=== PATIENT | female | born 1980 | race Caucasian/White ===

== ENCOUNTER 2016-09-08 21:08 | Emergency (ER) | payer BC, OTHER ==
[~2016-09-08] VITALS: Ht 157.5 cm; Wt 68.0 kg
[~2016-09-08 21:08] MED LIST: CYCL10TA2 PO; DIPH25CA58 PO; FAMO-63 PO; HYDR-2758 PO; HYDR-971 PO; LEVO500T59 PO; METR500T PO; NITR100C62 PO; ONDA4TAB7 PO; SULF1TAB24 PO
[2016-09-08] MEDS ORDERED: HYDROmorphone 2 MG/ML VIAL IV ONE (22:00)
[2016-09-08] MEDS ORDERED: KETOROLAC 15 MG/ML VIAL. IV ONE (22:00)
[2016-09-08] MEDS ORDERED: IV NORMAL SALINE 1000ML BAG 1,000 ML IV ONE (22:00)
[2016-09-08] MEDS ORDERED: ONDANSETRON PF 4 MG/2 ML VIAL. IV ONE (22:00)
[2016-09-08 22:06] LABS: BASO # 0.1 x10^3/uL (0.0-0.2); BASO % 1 % (0-3); EOS % 1 % (0-3); HEMATOCRIT 34.5 % (36.0-47.0); HEMOGLOBIN 10.8 g/dL (12.0-15.5); LYMPH # 2.7 x10^3/uL (1.0-4.8); LYMPH % 34 % (24-48); MEAN CORPUSCULAR HEMOGLOBIN 25 pg (25-35); MEAN CORPUSCULAR HGB CONC 31 g/dL (31-37); MEAN CORPUSCULAR VOLUME 79 fL (79-100); MONO % 10 % (0-9); NEUT % 54 % (31-73); RED BLOOD COUNT 4.39 x10^6/uL (3.50-5.40); RED CELL DISTRIBUTION WIDTH 18.2 % (11.5-14.5); WHITE BLOOD COUNT 7.8 x10^3/uL (4.0-11.0)
[2016-09-08 22:14] LABS: CALCIUM 9.2 mg/dL (8.5-10.1); CREATININE 0.7 mg/dL (0.6-1.0); GFR 96.4; POTASSIUM 3.9 mmol/L (3.5-5.1)
[2016-09-08 22:15] LABS: PLATELET COUNT 991 x10^3/uL (140-400)
[2016-09-08 22:15] LABS: BACTERIA,URINE FEW /HPF (0-FEW); BILIRUBIN,URINE NEGATIVE (NEG); GLUCOSE,URINE NEGATIVE (NEG); NITRITE,URINE NEGATIVE (NEG); PROTEIN,URINE NEGATIVE (NEG-TRACE); RBC,URINE 0 /HPF (0-2); SQUAMOUS EPITHELIAL CELL,UR FEW /LPF; UROBILINOGEN,URINE 0.2 mg/dL (0.2 mg/dL)
[2016-09-08 22:37] LABS: ANISOCYTOSIS SLIGHT; PLT ESTIMATE INCREASED (ADEQUATE); POLYCHROMASIA SLIGHT
[2016-09-08 22:42] LABS: ALBUMIN 3.9 g/dL (3.4-5.0); ALBUMIN/GLOBULIN RATIO 0.8 (1.0-1.7); TOTAL BILIRUBIN 0.5 mg/dL (0.2-1.0); TOTAL PROTEIN 8.5 g/dL (6.4-8.2)
[2016-09-09] MEDS ORDERED: NAPR500T PO (00:55)
[2016-09-09] MEDS ORDERED: CEPH-264 PO (00:55)
--- NOTE | 2016-09-09 00:58 | PHYS DOC ---
Past Medical History Past Medical History: Other Additional Past Medical Histor: CHRONIC KIDNEY INFECTIONS, LUPUS, CHONIC PYELONEPHRITIS Past Surgical History: Appendectomy, Cholecystectomy, Splenectomy, Other Additional Past Surgical Histo: LEFT OVARY REMOVAL Alcohol Use: None Drug Use: None Adult General Chief Complaint Chief Complaint: FLANK PAIN HPI HPI Patient is a 35 year old female who presents here today complaining of left flank pain and suprapubic discomfort for approximately 1 day. Patient reports that she's had no fevers shakes chills. Patient is complaining of dysuria frequency and urgency. Patient is complaining of nausea vomiting. Patient has any diarrhea or hematuria. Patient's had a splenectomy in the past, appendectomy , cholecystectomy. Patient reports she had a recent miscarriage. When questioning patient further regarding her miscarriage patient reports that she was approximately 6 weeks on the August 27. She reports that she started having vaginal bleeding went to see her doctor and he did ultrasound on her. During that ultrasound they were not able to visualize the fetus. She did have some vaginal bleeding. Her doctor informed that she was likely having a miscarriage. Patient reports that she has not had serial beta hCGs to confirm miscarriage. Patient reports she has not had a repeat ultrasound to confirm she' s had a miscarriage and not a early IUP. 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 Patient reports that she's had UTI infection the past. Patient has had a history of lupus. Patient has any history of hypertension diabetes liver longer kidney pals. Surgeries in the past. Constitutional: Denies fever or chills [] Eyes: Denies change in visual acuity, redness, or eye pain [] HENT: Denies nasal congestion or sore throat [] All other review systems are negative except as documented in the history of present illness portion. Constitutional: Well developed, well nourished, no acute distress, non-toxic appearance. [] HENT: Normocephalic, atraumatic, bilateral external ears normal, oropharynx moist, no oral exudates, nose normal. [] Eyes: no discharge. [] Neck: Normal range of motion, no tenderness, supple, no stridor. [] Cardiovascular:Heart rate regular rhythm, Lungs & Thorax: Bilateral breath sounds clear to auscultation [] Abdomen: Bowel sounds normal, soft, tenderness to palpation to her left lower quadrant and left flank region. Normal active bowel sounds., no masses, no pulsatile masses. Abdomen soft nontender no rebound or guarding NABS. No Torres sign, no tenderness to McBurney's point. Patient not present with any signs or symptoms of be consistent with an acute surgical abdomen.[] Skin: Warm, dry, no erythema, no rash. [] Back: No tenderness, no CVA tenderness. [] Extremities: No tenderness, no cyanosis, no clubbing, ROM intact, no edema. [] Neurologic: Alert and oriented X 3, normal motor function, normal sensory function, no focal deficits noted. [] Psychologic: Affect normal, judgement normal, mood normal. [] Patient had an ultrasound performed to rule out ectopic . A bedside ultrasound performed by myself revealed a and uterus with an endometrial stripe. We're still pending the ultrasound report at this time. Patient is CT scan of her abdomen pelvis to rule out renal colic. We are still waiting on the CT report at this time. Patient's labs were significant for an elevated platelet count. Patient other history of ITP and is status post is clinically. Patient had 5-10 WBCs in her urine which could be consistent with urinary tract infection given the patient's symptoms she'll be treated for UTI. Patient's labs were all within normal limits. Patient's ER hospital course was significant for receiving a CT scan and ultrasound as well as basic labs were abdominal pain. Patient is also received Dilaudid, Toradol, Zofran and IV fluids for her abdominal discomfort. Assessment and plan: This is a 35-year-old female who presents here today complaining of abdominal pain and left flank pain. Patient appears to have a urinary tract infection this time. We are awaiting the CT scan ultrasound to rule out any other acute pathology however we will initiate Keflex to treat this patient's urinary tract infection. Current Medications Current Medications Current Medications Medications (Trade) Dose Ordered Sig/Rain Start Time Stop Time Status Last Admin Dose Admin Hydromorphone HCl (Dilaudid) 0.5 mg 1X ONCE 09/08/16 22:00 09/08/16 22:01 DC 09/08/16 22:08 0.5 MG Ketorolac Tromethamine (Toradol) 15 mg 1X ONCE 09/08/16 22:00 09/08/16 22:01 DC Ondansetron HCl (Zofran) 4 mg 1X ONCE 09/08/16 22:00 09/08/16 22:01 DC 09/08/16 22:08 4 MG Sodium Chloride 1,000 ml @ 1,000 mls/hr 1X ONCE 09/08/16 22:00 09/08/16 22:59 DC 09/08/16 22:09 1,000 MLS/HR Allergies Allergies Allergies Coded Allergies Type Severity Reaction Last Updated Verified tramadol Allergy Severe seizure 01/18/16 Yes morphine Allergy Intermediate Rash 02/06/16 Yes Current Patient Data Vital Signs Vital Signs Date Time Temp Pulse Resp B/P (MAP) Pulse Ox O2 Delivery O2 Flow Rate FiO2 09/08/16 23:11 96 18 141/82 (101) 100 Room Air 09/08/16 21:34 98.9 98.9 Lab Values Laboratory Tests Test 09/08/16 20:35 09/08/16 21:25 09/08/16 21:55 POC Urine HCG, Qualitative Hcg positive (Negative) Urine Collection Type Unknown Urine Color Yellow Urine Clarity Clear Urine pH 6.0 Urine Specific [place] 1.020 Urine Protein Negative mg/dL (NEG-TRACE) Urine Glucose (UA) Negative mg/dL (NEG) Urine Ketones (Stick) Negative mg/dL (NEG) Urine Blood Negative (NEG) Urine Nitrite Negative (NEG) Urine Bilirubin Negative (NEG) Urine Urobilinogen Dipstick 0.2 mg/dL (0.2 mg/dL) Urine Leukocyte Esterase Small (NEG) Urine RBC 0 /HPF (0-2) Urine WBC 5-10 /HPF (0-4) Urine Squamous Epithelial Cells Few /LPF Urine Bacteria Few /HPF (0-FEW) Urine Mucus Mod /LPF White Blood Count 7.8 x10^3/uL (4.0-11.0) Red Blood Count 4.39 x10^6/uL (3.50-5.40) Hemoglobin 10.8 g/dL (12.0-15.5) L Hematocrit 34.5 % (36.0-47.0) L Mean Corpuscular Volume 79 fL (79-100) Mean Corpuscular Hemoglobin 25 pg (25-35) Mean Corpuscular Hemoglobin Concent 31 g/dL (31-37) Red Cell Distribution Width 18.2 % (11.5-14.5) H Platelet Count 991 x10^3/uL (140-400) *H Neutrophils (%) (Auto) 54 % (31-73) Lymphocytes (%) (Auto) 34 % (24-48) Monocytes (%) (Auto) 10 % (0-9) H Eosinophils (%) (Auto) 1 % (0-3) Basophils (%) (Auto) 1 % (0-3) Neutrophils # (Auto) 4.2 x10^3uL (1.8-7.7) Lymphocytes # (Auto) 2.7 x10^3/uL (1.0-4.8) Monocytes # (Auto) 0.8 x10^3/uL (0.0-1.1) Eosinophils # (Auto) 0.0 x10^3/uL (0.0-0.7) Basophils # (Auto) 0.1 x10^3/uL (0.0-0.2) Platelet Estimate Increased (ADEQUATE) Polychromasia Slight Anisocytosis Slight Maternal Serum HCG Beta Subunit 97 mIU/mL (0-5) H Sodium Level 138 mmol/L (136-145) Potassium Level 3.9 mmol/L (3.5-5.1) Chloride Level 102 mmol/L (98-107) Carbon Dioxide Level 21 mmol/L (21-32) Anion Gap 15 (6-14) H Blood Urea Nitrogen 11 mg/dL (7-20) Creatinine 0.7 mg/dL (0.6-1.0) Estimated GFR (Cockcroft-Gault) 96.4 BUN/Creatinine Ratio 16 (6-20) Glucose Level 101 mg/dL (70-99) H Calcium Level 9.2 mg/dL (8.5-10.1) Total Bilirubin 0.5 mg/dL (0.2-1.0) Aspartate Amino Transferase (AST) 31 U/L (15-37) Alanine Aminotransferase (ALT) 30 U/L (14-59) Alkaline Phosphatase 113 U/L (46-116) Total Protein 8.5 g/dL (6.4-8.2) H Albumin 3.9 g/dL (3.4-5.0) Albumin/Globulin Ratio 0.8 (1.0-1.7) L Laboratory Tests 09/08/16 21:55 Laboratory Tests 09/08/16 21:55 EKG EKG [] Radiology/Procedures Radiology/Procedures [] Course & Med Decision Making Course & Med Decision Making Pertinent Labs and Imaging studies reviewed. (See chart for details) [] Dragon Disclaimer Dragon Disclaimer This electronic medical record was generated, in whole or in part, using a voice recognition dictation system. Departure Departure Impression: Primary Impression: Left flank pain Additional Impressions: UTI (urinary tract infection) Thrombocytosis Disposition: HOME, SELF-CARE Condition: GUARDED Referrals: NO PCP (PCP) Patient Instructions: Abdominal Pain (Nonspecific), Flank Pain, Urinary Tract Infection Scripts Naproxen (NAPROSYN) 500 Mg Tablet 500 MG PO BID, #20 TAB Prov: PHI GONZALEZ MD 09/09/16 Cephalexin (KEFLEX) 500 Mg Capsule 500 MG PO QID for 10 Days, CAP Prov: PHI GONZALEZ MD 09/09/16 Problem Qualifiers PHI GONZALEZ MD Sep 09, 2016 00:58
--- NOTE | 2016-09-09 01:04 | RAD ---
Obstetric ultrasound less than 14 weeks with transvaginal: Reason for examination: Pelvic pain and left flank pain. Told by OB on 08/26/2016 she had a miscarriage. Beta level 97. Transvaginally, the uterus measures 6.8 x 3.7 x 4.3 cm in greatest dimension. There is no evidence of intrauterine or ectopic gestation. Right ovary measures 3.0 x 2.3 x 2.0 cm in greatest dimensions. There is a small hypoechoic lesion in the right ovary which may represent a cyst or corpus luteal cyst. The left ovary is surgically absent. No free fluid is seen. Transvaginally, there is no evidence of intrauterine or ectopic gestation. There does appear to be a nabothian cyst in cervix. There is a 1.2 cm cystic lesion in the right ovary as well as a few smaller follicles. The left ovary is surgically absent. IMPRESSION: 1.2 cm cystic lesion in the right ovary. No evidence of intrauterine or ectopic gestation. Electronically signed by: Maryuri Jimenez MD (09/09/2016 1:01 AM) [facility]
--- NOTE | 2016-09-09 01:11 | RAD ---
CT abdomen and pelvis without contrast: Reason for examination: Severe left flank pain today. Helical images were obtained through the abdomen and pelvis with no intravenous or oral contrast administered. Reconstruction was performed in sagittal and coronal planes. Exposure: One or more of the following individualized dose reduction techniques were utilized for this examination: 1. Automated exposure control 2. Adjustment of the mA and/or kV according to patient size 3. Use of iterative reconstruction technique. The lung bases are clear. The heart size is normal with no pericardial effusion seen. No abnormality seen at the liver, pancrea or adrenal glands. The spleen appears to be surgically absent. Gallbladder is surgically absent. The abdominal aorta and inferior vena cava show no abnormalities. The kidneys show no renal masses, renal calculi, hydronephrosis or evidence of obstructive uropathy. The intestinal tract shows no abnormally dilated loops of bowel or bowel obstruction. There are no abnormally thickened bowel dowell. There is no diverticulosis or diverticulitis. The appendix is not identified and may be surgically absent. No abnormality seen at the bladder, uterus or right ovary. The left ovary surgically absent. No free fluid is seen in the pelvis. No acute bony abnormalities are evident. IMPRESSION: No acute abnormality evident in the abdomen or pelvis. Electronically signed by: Maryuri Jimenez MD (09/09/2016 1:08 AM) [facility]
[2016-09-09] MEDS ORDERED: HYDROmorphone 2 MG/ML VIAL IV ONE (01:30)
[2016-09-09 02:12] VITALS: BP 119/70
== END 2016-09-09 02:13 | disposition home or self-care (01) ==
LOC: ER 21:08
DX: O23.41 Unspecified infection of urinary tract in pregnancy, first trimester (principal); O26.891 Other specified pregnancy related conditions, first trimester; D47.3 Essential (hemorrhagic) thrombocythemia; M32.9 Systemic lupus erythematosus, unspecified; Z3A.01 Less than 8 weeks gestation of pregnancy; Z88.6 Allergy status to analgesic agent; Z90.49 Acquired absence of other specified parts of digestive tract
CPT/HCPCS: 36415; 74176; 76801; 76817; 80053; 81001; 81025; 84702; 85007; 85027; 86900; 86901; 87086; 96361; 96365; 96375; 96376; 99285; J0690; J1170; J1885; J2405; J7030; 87186

== ENCOUNTER 2016-09-17 19:11 | Emergency (ER) | payer OTHER ==
[~2016-09-17] VITALS: Ht 157.5 cm; Wt 65.8 kg
[~2016-09-17 19:11] MED LIST changes: +CEPH-264 PO; +NAPR500T PO
[2016-09-17 20:05] LABS: BILIRUBIN,URINE SMALL (NEG); GLUCOSE,URINE NEGATIVE (NEG); NITRITE,URINE NEGATIVE (NEG); PROTEIN,URINE 30 mg/dL (NEG-TRACE); UROBILINOGEN,URINE 0.2 mg/dL (0.2 mg/dL)
[2016-09-17 20:19] LABS: BACTERIA,URINE MODERATE /HPF (0-FEW); RBC,URINE 0 /HPF (0-2); SQUAMOUS EPITHELIAL CELL,UR MOD /LPF; WBC,URINE >40 /HPF (0-4); YEAST,URINE PRESENT /HPF
[2016-09-17] MEDS ORDERED: ONDANSETRON PF 4 MG/2 ML VIAL. IV ONE ×2 (20:30→22:00)
[2016-09-17] MEDS ORDERED: HYDROmorphone 2 MG/ML VIAL IV ONE ×2 (20:30→22:30)
[2016-09-17] MEDS ORDERED: IV NORMAL SALINE 1000ML BAG 1,000 ML IV ONE (20:30)
--- NOTE | 2016-09-17 20:44 | PHYS DOC ---
Past Medical History Past Medical History: Other Additional Past Medical Histor: CHRONIC KIDNEY INFECTIONS, LUPUS, CHONIC PYELONEPHRITIS Past Surgical History: Appendectomy, Cholecystectomy, Splenectomy, Other Additional Past Surgical Histo: LEFT OVARY REMOVAL Alcohol Use: None Drug Use: None Adult General Chief Complaint Chief Complaint: FLANK PAIN HPI HPI Patient is a 35 year old female with a history of chronic UTIs, chronic pyelonephritis, who presents today complaining of right flank pain for one week. Patient states she was seen in the ED a week ago for UTI. She states she was discharged with cephalexin. Patient states she finished it yesterday. She states she has continued to have flank pain which got worse yesterday with nausea vomiting this morning. Patient denies any fever. Denies any frequency but states she has had hematuria. Denies any history of kidney stones. Review of Systems Review of Systems Constitutional: Denies fever or chills [] Eyes: Denies change in visual acuity, redness, or eye pain [] HENT: Denies nasal congestion or sore throat [] Respiratory: Denies cough or shortness of breath [] Cardiovascular: No additional information not addressed in HPI [] GI: Denies abdominal pain, nausea, vomiting, bloody stools or diarrhea [] : hematuria, dysuria Musculoskeletal: Denies back pain or joint pain [] Integument: Denies rash or skin lesions [] Neurologic: Denies headache, focal weakness or sensory changes [] Endocrine: Denies polyuria or polydipsia [] Current Medications Current Medications Current Medications Medications (Trade) Dose Ordered Sig/Rain Start Time Stop Time Status Last Admin Dose Admin Ciprofloxacin Lactate 200 ml @ 200 mls/hr 1X ONCE 09/17/16 22:00 09/17/16 22:59 09/17/16 21:46 200 MLS/HR Hydromorphone HCl (Dilaudid) 1 mg 1X ONCE 09/17/16 20:30 09/17/16 20:31 DC 09/17/16 20:38 1 MG Ketorolac Tromethamine (Toradol) 30 mg 1X ONCE 09/17/16 22:00 09/17/16 22:01 09/17/16 21:45 30 MG Ondansetron HCl (Zofran) 4 mg 1X ONCE 09/17/16 22:00 09/17/16 22:01 09/17/16 21:45 4 MG Sodium Chloride 1,000 ml @ 1,000 mls/hr 1X ONCE 09/17/16 20:30 09/17/16 21:30 DC 09/17/16 20:39 1,000 MLS/HR Allergies Allergies Allergies Coded Allergies Type Severity Reaction Last Updated Verified tramadol Allergy Severe seizure 01/18/16 Yes morphine Allergy Intermediate Rash 02/06/16 Yes Physical Exam Physical Exam Constitutional: Well developed, well nourished, no acute distress, non-toxic appearance. [] HENT: Normocephalic, atraumatic, bilateral external ears normal, oropharynx moist, no oral exudates, nose normal. [] Eyes: PERRLA, EOMI, conjunctiva normal, no discharge. [] Neck: Normal range of motion, no tenderness, supple, no stridor. [] Cardiovascular:Heart rate regular rhythm, no murmur [] Lungs & Thorax: Bilateral breath sounds clear to auscultation [] Abdomen: Bowel sounds normal, soft, no tenderness, no masses, no pulsatile masses. [] Skin: Warm, dry, no erythema, no rash. [] Back: No tenderness, mild right CVA tenderness. [] Extremities: No tenderness, no cyanosis, no clubbing, ROM intact, no edema. [] Neurologic: Alert and oriented X 3, normal motor function, normal sensory function, no focal deficits noted. [] Psychologic: Affect normal, judgement normal, mood normal. [] Current Patient Data Vital Signs Vital Signs Date Time Temp Pulse Resp B/P (MAP) Pulse Ox O2 Delivery O2 Flow Rate FiO2 09/17/16 20:38 18 99 Room Air 09/17/16 19:58 98.8 127 188/105 (132) 98.8 Lab Values Laboratory Tests Test 09/17/16 19:10 09/17/16 19:49 09/17/16 20:40 09/17/16 20:45 POC Urine HCG, Qualitative Borderline hcg level Urine Collection Type Void Urine Color Yellow Urine Clarity Clear Urine pH 6.0 Urine Specific [place] >=1.030 Urine Protein 30 mg/dL (NEG-TRACE) Urine Glucose (UA) Negative mg/dL (NEG) Urine Ketones (Stick) >=80 mg/dL (NEG) Urine Blood Negative (NEG) Urine Nitrite Negative (NEG) Urine Bilirubin Small (NEG) Urine Urobilinogen Dipstick 0.2 mg/dL (0.2 mg/dL) Urine Leukocyte Esterase Moderate (NEG) Urine RBC 0 /HPF (0-2) Urine WBC >40 /HPF (0-4) Urine Squamous Epithelial Cells Mod /LPF Urine Bacteria Moderate /HPF (0-FEW) Urine Mucus Marked /LPF Urine Yeast Present /HPF White Blood Count 10.3 x10^3/uL (4.0-11.0) Red Blood Count 4.28 x10^6/uL (3.50-5.40) Hemoglobin 10.5 g/dL (12.0-15.5) L Hematocrit 34.1 % (36.0-47.0) L Mean Corpuscular Volume 80 fL (79-100) Mean Corpuscular Hemoglobin 25 pg (25-35) Mean Corpuscular Hemoglobin Concent 31 g/dL (31-37) Red Cell Distribution Width 18.6 % (11.5-14.5) H Platelet Count 683 x10^3/uL (140-400) H Neutrophils (%) (Auto) 72 % (31-73) Lymphocytes (%) (Auto) 20 % (24-48) L Monocytes (%) (Auto) 7 % (0-9) Eosinophils (%) (Auto) 0 % (0-3) Basophils (%) (Auto) 1 % (0-3) Neutrophils # (Auto) 7.4 x10^3uL (1.8-7.7) Lymphocytes # (Auto) 2.1 x10^3/uL (1.0-4.8) Monocytes # (Auto) 0.7 x10^3/uL (0.0-1.1) Eosinophils # (Auto) 0.0 x10^3/uL (0.0-0.7) Basophils # (Auto) 0.1 x10^3/uL (0.0-0.2) Sodium Level 140 mmol/L (136-145) Potassium Level 3.5 mmol/L (3.5-5.1) Chloride Level 103 mmol/L (98-107) Carbon Dioxide Level 21 mmol/L (21-32) Anion Gap 16 (6-14) H Blood Urea Nitrogen 11 mg/dL (7-20) Creatinine 0.7 mg/dL (0.6-1.0) Estimated GFR (Cockcroft-Gault) 96.4 BUN/Creatinine Ratio 16 (6-20) Glucose Level 91 mg/dL (70-99) Calcium Level 9.4 mg/dL (8.5-10.1) Total Bilirubin 0.4 mg/dL (0.2-1.0) Aspartate Amino Transferase (AST) 27 U/L (15-37) Alanine Aminotransferase (ALT) 72 U/L (14-59) H Alkaline Phosphatase 150 U/L (46-116) H Total Protein 8.7 g/dL (6.4-8.2) H Albumin 3.9 g/dL (3.4-5.0) Albumin/Globulin Ratio 0.8 (1.0-1.7) L Lipase 87 U/L (73-393) Ethyl Alcohol Level < 10 mg/dL (0-10) Maternal Serum HCG Beta Subunit 12 mIU/mL (0-5) H Laboratory Tests 09/17/16 20:40 Laboratory Tests 09/17/16 20:40 EKG EKG [] Radiology/Procedures Radiology/Procedures [] Course & Med Decision Making Course & Med Decision Making Pertinent Labs and Imaging studies reviewed. (See chart for details) This is a 35-year-old female patient who presents to the ED today with right flank pain. Patient has history of chronic pyelonephritis and UTIs. Patient was seen in the ED a week ago with the same complaint and was discharged with cephalexin. She finished the medicine yesterday with no relief of symptoms. Urine still shows infection. CBC with normal WBC. Platelets 683, patient has history of ITP with splenectomy. 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 I highly recommended she follows up with the government contracts manager. Last week Platelets were in the 900s. CMP would not acute findings. Patient was offered admission but she declined. Using her urine culture results from the last week. Patient is susceptible to Cipro. She was given first dose in the ED and discharged with Cipro, Zofran and hydrocodone as needed for pain. I recommended she follows up with [facility] urologist. She is instructed to return to the ED symptoms worsen. Dragon Disclaimer Dragon Disclaimer This electronic medical record was generated, in whole or in part, using a voice recognition dictation system. Departure Departure Impression: Primary Impression: Acute pyelonephritis Additional Impressions: Thrombocytosis Tachycardia Disposition: HOME, SELF-CARE Condition: STABLE Referrals: NO PCP (PCP) Follow-up with your own doctor or urologist at [facility] next week. [facility] does not have a urologist. Patient Instructions: Pyelonephritis, Adult Additional Instructions: You were seen for pyelonephritis. Take the prescribed antibiotics as ordered. Come back to the ED if symptoms worsen. Follow-up with your doctor next week. You can also follow up with on [facility] urology clinic. [facility] does not have a urologist. Scripts Ondansetron Hcl (ZOFRAN) 4 Mg Tablet 1 TAB PO Q6HRS, #20 TAB Prov: MILA BERRY APRN 09/17/16 Hydrocodone/Apap 5-325 (NORCO 5-325 TABLET) 1 Each Tablet 1-2 TAB PO Q4-6HRS, #25 TAB Prov: MILA BERRY APRN 09/17/16 Ciprofloxacin Hcl (CIPRO) 500 Mg Tablet 1 TAB PO BID, #14 TAB Prov: MILA BERRY APRN 09/17/16 Problem Qualifiers MILA BERRY APRN Sep 17, 2016 20:44
[2016-09-17 21:11] LABS: BASO # 0.1 x10^3/uL (0.0-0.2); BASO % 1 % (0-3); CALCIUM 9.4 mg/dL (8.5-10.1); CREATININE 0.7 mg/dL (0.6-1.0); EOS % 0 % (0-3); GFR 96.4; HEMATOCRIT 34.1 % (36.0-47.0); HEMOGLOBIN 10.5 g/dL (12.0-15.5); LYMPH # 2.1 x10^3/uL (1.0-4.8); LYMPH % 20 % (24-48); MEAN CORPUSCULAR HEMOGLOBIN 25 pg (25-35); MEAN CORPUSCULAR HGB CONC 31 g/dL (31-37); MEAN CORPUSCULAR VOLUME 80 fL (79-100); MONO % 7 % (0-9); NEUT % 72 % (31-73); PLATELET COUNT 683 x10^3/uL (140-400); POTASSIUM 3.5 mmol/L (3.5-5.1); RED BLOOD COUNT 4.28 x10^6/uL (3.50-5.40); RED CELL DISTRIBUTION WIDTH 18.6 % (11.5-14.5); WHITE BLOOD COUNT 10.3 x10^3/uL (4.0-11.0)
[2016-09-17 21:18] LABS: ALBUMIN 3.9 g/dL (3.4-5.0); ALBUMIN/GLOBULIN RATIO 0.8 (1.0-1.7); TOTAL BILIRUBIN 0.4 mg/dL (0.2-1.0); TOTAL PROTEIN 8.7 g/dL (6.4-8.2)
[2016-09-17] MEDS ORDERED: CIPR500T94 PO (21:47)
[2016-09-17] MEDS ORDERED: HYDR-971 PO (21:47)
[2016-09-17] MEDS ORDERED: ONDA4TAB7 PO (21:47)
[2016-09-17] MEDS ORDERED: KETOROLAC TROMETHAMINE 30 MG/ML INJ. IV ONE (22:00)
[2016-09-17] MEDS ORDERED: CIPROFLOXACIN 400MG PREMIX 200 ML IV ONE (22:00)
[2016-09-17 22:14] LABS: BARBITURATES NEG (NEG); BENZODIAZEPINES POS (NEG); CANNABINOIDS NEG (NEG); COCAINE NEG (NEG); METHADONE NEG (NEG); OPIATES NEG (NEG); PHENCYCLIDINE NEG (NEG)
[2016-09-17 23:00] VITALS: BP 135/82
== END 2016-09-17 23:15 | disposition home or self-care (01) ==
LOC: ER 19:11
DX: N10 Acute pyelonephritis (principal); D47.3 Essential (hemorrhagic) thrombocythemia; R00.0 Tachycardia, unspecified; M32.9 Systemic lupus erythematosus, unspecified; Z87.440 Personal history of urinary (tract) infections; Z90.49 Acquired absence of other specified parts of digestive tract; Z90.81 Acquired absence of spleen; Z90.721 Acquired absence of ovaries, unilateral; Z88.5 Allergy status to narcotic agent
CPT/HCPCS: 36415; 80053; 80307; 81001; 81025; 83690; 84702; 85027; 87086; 96361; 96365; 96375; 96376; 99285; G0480; J0744; J1170; J1885; J2405; J7030; G0479

== ENCOUNTER 2016-09-20 16:50 | Emergency (ER) | payer OTHER ==
[~2016-09-20] VITALS: Ht 157.5 cm; Wt 65.8 kg
[~2016-09-20 16:50] MED LIST changes: +CIPR500T94 PO
[2016-09-20] MEDS ORDERED: IV NORMAL SALINE 1000ML BAG 1,000 ML IV SCH (17:56)
[2016-09-20 18:08] LABS: BILIRUBIN,URINE NEGATIVE (NEG); GLUCOSE,URINE NEGATIVE (NEG); NITRITE,URINE NEGATIVE (NEG); PROTEIN,URINE NEGATIVE (NEG-TRACE); UROBILINOGEN,URINE 0.2 mg/dL (0.2 mg/dL)
[2016-09-20 18:15] LABS: BACTERIA,URINE MODERATE /HPF (0-FEW); RBC,URINE 0 /HPF (0-2); SQUAMOUS EPITHELIAL CELL,UR MOD /LPF
[2016-09-20 18:48] LABS: BILIRUBIN,URINE NEGATIVE (NEG); GLUCOSE,URINE NEGATIVE (NEG); NITRITE,URINE NEGATIVE (NEG); PH,URINE 6.5; PROTEIN,URINE NEGATIVE (NEG-TRACE); UROBILINOGEN,URINE 0.2 mg/dL (0.2 mg/dL)
[2016-09-20 19:01] LABS: BACTERIA,URINE 0 /HPF (0-FEW); RBC,URINE 0 /HPF (0-2); SQUAMOUS EPITHELIAL CELL,UR FEW /LPF
[2016-09-20 19:09] LABS: BASO # 0.1 x10^3/uL (0.0-0.2); BASO % 1 % (0-3); EOS % 1 % (0-3); HEMATOCRIT 34.8 % (36.0-47.0); HEMOGLOBIN 10.6 g/dL (12.0-15.5); LYMPH % 47 % (24-48); MEAN CORPUSCULAR HEMOGLOBIN 24 pg (25-35); MEAN CORPUSCULAR HGB CONC 31 g/dL (31-37); MEAN CORPUSCULAR VOLUME 80 fL (79-100); MONO % 5 % (0-9); NEUT % 47 % (31-73); PLATELET COUNT 668 x10^3/uL (140-400); RED BLOOD COUNT 4.35 x10^6/uL (3.50-5.40); RED CELL DISTRIBUTION WIDTH 18.5 % (11.5-14.5); WHITE BLOOD COUNT 8.5 x10^3/uL (4.0-11.0)
[2016-09-20 19:18] LABS: CREATININE 0.6 mg/dL (0.6-1.0); GFR 115.1; POTASSIUM 3.6 mmol/L (3.5-5.1)
[2016-09-20 19:24] LABS: ALBUMIN 3.9 g/dL (3.4-5.0); ALBUMIN/GLOBULIN RATIO 0.9 (1.0-1.7); TOTAL BILIRUBIN 0.3 mg/dL (0.2-1.0); TOTAL PROTEIN 8.4 g/dL (6.4-8.2)
[2016-09-20 20:14] LABS: % BASOS 1 % (0-3); % EOS 1 % (0-5); ANISOCYTOSIS SLIGHT; HOWELL-JOLLY BODIES PRESENT; HYPOCHROMIA SLIGHT; PLT ESTIMATE INCREASED (ADEQUATE); POIKILOCYTOSIS SLIGHT; TARGET CELLS PRESENT
[2016-09-20 20:18] LABS: SCHISTOCYTES FEW
[2016-09-20 20:19] LABS: ACANTHOCYTES OCC
[2016-09-20] MEDS ORDERED: PROM25TA10 PO (20:23)
--- NOTE | 2016-09-20 20:24 | PHYS DOC ---
Past Medical History Past Medical History: Other Additional Past Medical Histor: CHRONIC KIDNEY INFECTIONS, LUPUS, CHONIC PYELONEPHRITIS Past Surgical History: Appendectomy, Cholecystectomy, Splenectomy, Other Additional Past Surgical Histo: LEFT OVARY REMOVAL Alcohol Use: None Drug Use: None Adult General Chief Complaint Chief Complaint: FLANK PAIN HPI HPI Patient is a 35 year old female complaining of first right and then bilateral flank pain. The patient was seen a few days ago and diagnosed with urinary tract infection, she was started on antibiotics. The patient states she has been feeling worse. She has began to feel feverish. She's had vomiting. Her pain has worsened. She has been taking Her antibiotics as prescribed. Patient has had a couple of UTI/"kidney infections" in the recent past but does not have lifelong problems with that. She was recently seen in the ED and had a CT scan of the abdomen and pelvis that was negative for acute findings. Review of Systems Review of Systems Constitutional: Complains of fever and chills Eyes: Denies change in visual acuity, redness, or eye pain [] HENT: Denies nasal congestion or sore throat [] Respiratory: Denies cough or shortness of breath [] Cardiovascular: Denies chest pain GI: As in history of present illness : Denies dysuria or hematuria , the complaint is flank pain Musculoskeletal: Denies back pain or joint pain [] Integument: Denies rash or skin lesions [] Neurologic: Denies headache, focal weakness or sensory changes [] Current Medications Current Medications Current Medications Medications (Trade) Dose Ordered Sig/Rain Start Time Stop Time Status Last Admin Dose Admin Ketorolac Tromethamine (Toradol) 30 mg 1X ONCE 09/20/16 20:30 09/20/16 20:31 DC 09/20/16 20:14 30 MG Ondansetron HCl (Zofran) 4 mg 1X ONCE 09/20/16 20:30 09/20/16 20:31 DC 09/20/16 20:14 4 MG Sodium Chloride 1,000 ml @ 1,000 mls/hr Q1H 09/20/16 17:56 09/20/16 18:55 DC 09/20/16 18:26 1,000 MLS/HR Allergies Allergies Allergies Coded Allergies Type Severity Reaction Last Updated Verified tramadol Allergy Severe seizure 01/18/16 Yes morphine Allergy Intermediate Rash 02/06/16 Yes Physical Exam Physical Exam Constitutional: Well developed, well nourished, appears to not feel well, alert , mentating normally, warm and dry HENT: Normocephalic, atraumatic, bilateral external ears normal, nose normal. [ ] Eyes: conjunctiva normal, no discharge. [] Neck: Normal range of motion, no stridor. [] Cardiovascular:Heart rate regular rhythm, no murmur [] Lungs & Thorax: Bilateral breath sounds clear to auscultation [] Abdomen: Bowel sounds normal, soft, no tenderness, no masses, no pulsatile masses. [] Skin: Warm, dry, no erythema, no rash. [] Back: Tenderness to light touch over both CVA areas Extremities: No tenderness, no cyanosis, no clubbing, ROM intact, no edema. [] Neurologic: Alert and oriented X 3, normal motor function, normal sensory function, no focal deficits noted. [] Current Patient Data Vital Signs Vital Signs Date Time Temp Pulse Resp B/P (MAP) Pulse Ox O2 Delivery O2 Flow Rate FiO2 09/20/16 20:43 102 20 136/92 (107) 98 Room Air 09/20/16 17:26 98.6 98.6 Lab Values Laboratory Tests Test 09/20/16 16:29 09/20/16 17:19 09/20/16 18:31 09/20/16 19:01 POC Urine HCG, Qualitative Hcg negative (Negative) Urine Collection Type Unknown U cath Urine Color Yellow Yellow Urine Clarity Clear Clear Urine pH 7.0 6.5 Urine Specific [place] <=1.005 <=1.005 Urine Protein Negative mg/dL (NEG-TRACE) Negative mg/dL (NEG-TRACE) Urine Glucose (UA) Negative mg/dL (NEG) Negative mg/dL (NEG) Urine Ketones (Stick) Negative mg/dL (NEG) Negative mg/dL (NEG) Urine Blood Negative (NEG) Negative (NEG) Urine Nitrite Negative (NEG) Negative (NEG) Urine Bilirubin Negative (NEG) Negative (NEG) Urine Urobilinogen Dipstick 0.2 mg/dL (0.2 mg/dL) 0.2 mg/dL (0.2 mg/dL) Urine Leukocyte Esterase Large (NEG) Trace (NEG) Urine RBC 0 /HPF (0-2) 0 /HPF (0-2) Urine WBC 11-20 /HPF (0-4) 1-4 /HPF (0-4) Urine Squamous Epithelial Cells Mod /LPF Few /LPF Urine Bacteria Moderate /HPF (0-FEW) 0 /HPF (0-FEW) White Blood Count 8.5 x10^3/uL (4.0-11.0) Red Blood Count 4.35 x10^6/uL (3.50-5.40) Hemoglobin 10.6 g/dL (12.0-15.5) L Hematocrit 34.8 % (36.0-47.0) L Mean Corpuscular Volume 80 fL (79-100) Mean Corpuscular Hemoglobin 24 pg (25-35) L Mean Corpuscular Hemoglobin Concent 31 g/dL (31-37) Red Cell Distribution Width 18.5 % (11.5-14.5) H Platelet Count 668 x10^3/uL (140-400) H Neutrophils (%) (Auto) 47 % (31-73) Lymphocytes (%) (Auto) 47 % (24-48) Monocytes (%) (Auto) 5 % (0-9) Eosinophils (%) (Auto) 1 % (0-3) Basophils (%) (Auto) 1 % (0-3) Neutrophils # (Auto) 4.0 x10^3uL (1.8-7.7) Lymphocytes # (Auto) 4.0 x10^3/uL (1.0-4.8) Monocytes # (Auto) 0.4 x10^3/uL (0.0-1.1) Eosinophils # (Auto) 0.1 x10^3/uL (0.0-0.7) Basophils # (Auto) 0.1 x10^3/uL (0.0-0.2) Segmented Neutrophils % 67 % (35-66) H Band Neutrophils % 1 % (0-9) Lymphocytes % 27 % (24-48) Atypical Lymphocytes % (Manual) 1 % (0-0) H Monocytes % 2 % (0-10) Eosinophils % 1 % (0-5) Basophils % 1 % (0-3) Hypersegmented Neutrophils Present Platelet Estimate Increased (ADEQUATE) Hypochromasia Slight Poikilocytosis Slight Anisocytosis Slight Target Cells Present [place] Bodies Present Acanthocytes (Spur Cells) Occ Schistocytes Few Sodium Level 141 mmol/L (136-145) Potassium Level 3.6 mmol/L (3.5-5.1) Chloride Level 105 mmol/L (98-107) Carbon Dioxide Level 21 mmol/L (21-32) Anion Gap 15 (6-14) H Blood Urea Nitrogen 8 mg/dL (7-20) Creatinine 0.6 mg/dL (0.6-1.0) Estimated GFR (Cockcroft-Gault) 115.1 BUN/Creatinine Ratio 13 (6-20) Glucose Level 92 mg/dL (70-99) Calcium Level 9.0 mg/dL (8.5-10.1) Total Bilirubin 0.3 mg/dL (0.2-1.0) Aspartate Amino Transferase (AST) 15 U/L (15-37) Alanine Aminotransferase (ALT) 35 U/L (14-59) Alkaline Phosphatase 119 U/L (46-116) H Total Protein 8.4 g/dL (6.4-8.2) H Albumin 3.9 g/dL (3.4-5.0) Albumin/Globulin Ratio 0.9 (1.0-1.7) L Laboratory Tests 09/20/16 19:01 Laboratory Tests 09/20/16 19:01 Microbiology 09/20/16 Urine Culture - Final, Complete 09/20/16 Urine Culture Result 1 (KIM) - Final, Complete 09/20/16 Antimicrobic Susceptibility - Final, Complete EKG EKG [] Radiology/Procedures Radiology/Procedures [] Course & Med Decision Making Course & Med Decision Making Pertinent Labs and Imaging studies reviewed. (See chart for details) 35-year-old female presents with bilateral flank pain and what she is concerned may be a worsening UTI/pyelonephritis. She has been taking her antibiotics as prescribed. She had the diagnosis of a UTI made on a visit 09/08 and then again . Evaluation in the ED shows the patient to be afebrile without leukocytosis or other concerning lab abnormalities. Although she looks like she doesn't feel well, she did not have any vomiting or dry heaves in the emergency department. She was given a liter of IV fluids. I reviewed the patient's records. Her previous urinalyses on 09/08 and had moderate epithelial cells, and urine culture in both cases was under the threshold of greater than 100,000 colony-forming units. In both cases, the smaller number of bacteria were treated appropriately by the antibiotic prescribed, the first visit Keflex and the second visit Cipro. I discussed with the patient that I'm concerned that possibly her flank pain may not in fact be UTI/pyelonephritis. It is not really adding up for me that the patient does not have a fever or white count, has never had a threshold of greater than 100,000 colony-forming units of bacteria, and both cases has been treated with appropriate antibiotics that yet continues to have symptoms that are not improving and in fact worsening. Based on the above, I encouraged the patient to follow up with urology. She does have an appointment coming up. Patient has been hydrated and is stable for discharge to home. See instructions for plan. [] Dragon Disclaimer Dragon Disclaimer This electronic medical record was generated, in whole or in part, using a voice recognition dictation system. Departure Departure Impression: Primary Impression: Right flank pain Disposition: HOME, SELF-CARE Condition: STABLE Referrals: NO PCP (PCP) Patient Instructions: Flank Pain, [id number] Additional Instructions: As we discussed, when we obtained a urine sample by using a catheter, there is no infection. I'm concerned that your previous treatment for urinary tract infection/kidney infection may have been based on samples that were not perfectly clean urine out of your bladder, as we discussed, when we see skin cells and a urine sample, we consider it "contaminated" and the white blood cells and bacteria could have come from the outside of your skin and not inside of your bladder. As we discussed, continue to drink plenty of fluids and stay well-hydrated. As we discussed, I recommend avoiding opiate pain relievers in this type of the situation, where we do not know what is causing the pain and how long this pain might last. For pain, try heat or cold, try Tylenol and you may sparingly take ibuprofen with plenty of fluids or something to eat. For nausea, I have prescribed promethazine which may work better than Zofran for you. Call tomorrow to see if you can get your urology clinic appointment moved up sooner. Scripts Promethazine Hcl (PROMETHAZINE HCL) 25 Mg Tablet 25 MG PO Q6H Y for NAUSEA/VOMITING for 7 Days, #14 TAB Prov: SHAQUILLE READ MD 09/20/16 SHAQUILLE READ MD Sep 20, 2016:24
[2016-09-20] MEDS ORDERED: KETOROLAC TROMETHAMINE 30 MG/ML INJ. IV ONE (20:30)
[2016-09-20] MEDS ORDERED: ONDANSETRON PF 4 MG/2 ML VIAL. IV ONE (20:30)
[2016-09-20 20:43] VITALS: BP 136/92
== END 2016-09-20 20:43 | disposition home or self-care (01) ==
LOC: ER 16:50
DX: R10.9 Unspecified abdominal pain (principal); R11.10 Vomiting, unspecified; M32.9 Systemic lupus erythematosus, unspecified; Z90.49 Acquired absence of other specified parts of digestive tract; Z90.81 Acquired absence of spleen; Z88.5 Allergy status to narcotic agent; Z88.6 Allergy status to analgesic agent
CPT/HCPCS: 36415; 80053; 81001; 81025; 85007; 85027; 87086; 96361; 96374; 96375; 99284; J1885; J2405; J7030

== ENCOUNTER 2016-10-22 18:10 | Emergency (ER) | payer OTHER ==
[~2016-10-22] VITALS: Ht 157.5 cm; Wt 68.0 kg
[~2016-10-22 18:10] MED LIST changes: +CYAN10005 PO; +FERR325T72 PO; +METO25TA4 PO; +PROM25TA10 PO
--- NOTE | 2016-10-22 19:00 | PHYS DOC ---
Past Medical History Past Medical History: Seizure, Other Additional Past Medical Histor: CHRONIC KIDNEY INFECTIONS, LUPUS, CHONIC PYELONEPHRITIS Past Surgical History: Appendectomy, Cholecystectomy, Splenectomy, Other Additional Past Surgical Histo: LEFT OVARY REMOVAL Alcohol Use: None Drug Use: None Adult General Chief Complaint Chief Complaint: OTHER COMPLAINTS HPI HPI Patient is a 35 year old F who presents with coughing up blood and blood in her urine. Patient states approximately 3 weeks ago she is seizure with a skull fracture was admitted to [facility]. Patient states she has chronic kidney disease with chronic UTIs. Patient was seen in the emergency room at [facility] a week ago and was diagnosed with UTI and placed on Cipro. Patient states that her symptoms are gone worse over the last 3 days with burning with urination and blood in her urine. Patient has seen a doctor every day this week however did not address her UTI symptoms. Patient denies any fevers. Patient describes some right flank pain. Patient is also concerned about coughing up the blood. Patient on no blood thinners. Patient denies any shortness of breath or chest pain. Patient has no other complaints. Review of Systems Review of Systems GEN: Denies fevers, chills, sweats HEENT: Denies blurred vision, sore throat CV: Denies chest pain RESP: Coughing up blood GI: Suprapubic pain along with dysuria NEURO: Denies confusion, dizziness MSK: Denies weakness, joint pain/swelling Current Medications Current Medications Current Medications Medications (Trade) Dose Ordered Sig/Rain Start Time Stop Time Status Last Admin Dose Admin Ceftriaxone Sodium 50 ml @ 100 mls/hr 1X ONCE 10/22/16 23:30 10/22/16 23:59 DC 10/22/16 23:32 100 MLS/HR Fentanyl Citrate (Fentanyl 2ml Vial) 50 mcg 1X ONCE 10/22/16 21:45 10/22/16 21:46 DC 10/22/16 21:44 50 MCG Info (Do NOT chart on this entry -- for MONITORING) 1 each PRN DAILY PRN 10/22/16 22:00 10/23/16 00:12 DC Iohexol (Omnipaque 300 Mg/ml) 75 ml 1X ONCE 10/22/16 22:00 10/22/16 22:01 DC 10/22/16 22:00 75 ML Allergies Allergies Allergies Coded Allergies Type Severity Reaction Last Updated Verified tramadol Allergy Severe seizure 01/18/16 Yes morphine Allergy Intermediate Rash 02/06/16 Yes Physical Exam Physical Exam GEN.: No apparent distress. Alert and oriented. HEENT: Head is normocephalic, atraumatic NECK: Supple. LUNGS: CTAB. HEART: RRR, S1, S2 present. Peripheral pulses intact ABDOMEN: Soft, right CVA tenderness, suprapubic tenderness, no rebound tenderness, no abdominal distention. Positive bowel sounds. EXTREMITIES: Without any cyanosis. NEUROLOGIC: Normal speech, normal tone PSYCHIATRIC: Normal affect, normal mood. SKIN: No ulcerations Current Patient Data Vital Signs Vital Signs Date Time Temp Pulse Resp B/P (MAP) Pulse Ox O2 Delivery O2 Flow Rate FiO2 10/23/16 00:09 98.1 98 16 117/75 (89) 99 Room Air 98.1 Lab Values Laboratory Tests Test 10/22/16 18:25 10/22/16 18:27 10/22/16 19:30 Urine Collection Type Unknown Urine Color Yellow Urine Clarity Cloudy Urine pH 7.5 Urine Specific [place] 1.015 Urine Protein Negative mg/dL (NEG-TRACE) Urine Glucose (UA) Negative mg/dL (NEG) Urine Ketones (Stick) Negative mg/dL (NEG) Urine Blood Negative (NEG) Urine Nitrite Negative (NEG) Urine Bilirubin Negative (NEG) Urine Urobilinogen Dipstick 0.2 mg/dL (0.2 mg/dL) Urine Leukocyte Esterase Small (NEG) Urine RBC 0 /HPF (0-2) Urine WBC 20-40 /HPF (0-4) Urine Squamous Epithelial Cells Many /LPF Urine Bacteria Moderate /HPF (0-FEW) Urine Mucus Mod /LPF POC Urine HCG, Qualitative Hcg negative (Negative) White Blood Count 9.8 x10^3/uL (4.0-11.0) Red Blood Count 3.47 x10^6/uL (3.50-5.40) L Hemoglobin 9.4 g/dL (12.0-15.5) L Hematocrit 29.7 % (36.0-47.0) L Mean Corpuscular Volume 86 fL (79-100) Mean Corpuscular Hemoglobin 27 pg (25-35) Mean Corpuscular Hemoglobin Concent 32 g/dL (31-37) Red Cell Distribution Width 20.2 % (11.5-14.5) H Platelet Count 946 x10^3/uL (140-400) *H Neutrophils (%) (Auto) 50 % (31-73) Lymphocytes (%) (Auto) 40 % (24-48) Monocytes (%) (Auto) 6 % (0-9) Eosinophils (%) (Auto) 2 % (0-3) Basophils (%) (Auto) 1 % (0-3) Neutrophils # (Auto) 4.9 x10^3uL (1.8-7.7) Lymphocytes # (Auto) 3.9 x10^3/uL (1.0-4.8) Monocytes # (Auto) 0.6 x10^3/uL (0.0-1.1) Eosinophils # (Auto) 0.2 x10^3/uL (0.0-0.7) Basophils # (Auto) 0.1 x10^3/uL (0.0-0.2) Platelet Estimate Increased (ADEQUATE) Poikilocytosis Slight Anisocytosis Slight Target Cells Few [place] Bodies Present Acanthocytes (Spur Cells) Occ Schistocytes Few Sodium Level 141 mmol/L (136-145) Potassium Level 4.0 mmol/L (3.5-5.1) Chloride Level 106 mmol/L (98-107) Carbon Dioxide Level 23 mmol/L (21-32) Anion Gap 12 (6-14) Blood Urea Nitrogen 11 mg/dL (7-20) Creatinine 0.9 mg/dL (0.6-1.0) Estimated GFR (Cockcroft-Gault) 72.1 BUN/Creatinine Ratio 12 (6-20) Glucose Level 97 mg/dL (70-99) Calcium Level 9.3 mg/dL (8.5-10.1) Total Bilirubin 0.3 mg/dL (0.2-1.0) Aspartate Amino Transferase (AST) 18 U/L (15-37) Alanine Aminotransferase (ALT) 29 U/L (14-59) Alkaline Phosphatase 126 U/L (46-116) H Total Protein 7.7 g/dL (6.4-8.2) Albumin 3.9 g/dL (3.4-5.0) Albumin/Globulin Ratio 1.0 (1.0-1.7) Laboratory Tests 10/22/16 19:30 Laboratory Tests 10/22/16 19:30 EKG EKG [] Radiology/Procedures Radiology/Procedures CT scan abdomen pelvis: 1. No acute intra-abdominal or pelvic process is detected. 2. A 2.2 cm right ovarian cyst probably pathological. Chest x-ray NAD Course & Med Decision Making Course & Med Decision Making Pertinent Labs and Imaging studies reviewed. (See chart for details) ED course: Patient was seen and examined emergency room CBC, CMP, UA, and urine., CT scan and pelvis, chest x-ray were ordered 2313: Patient was reevaluated and updated on lab results and UA results and CT findings. Recommended patient be admitted to the hospital for elevated platelets and a persistent UTI. Patient states that she has a appointment with a maintenance planning clerk next week to follow-up for the elevated platelets that were found on her previous hospital admissions. Patient states she would like to change her antibiotics and not be admitted to the hospital. How long discussion with the patient about signs and symptoms of sepsis explained to her that she failed outpatient treatment with Cipro and would like to admit her for IV antibiotic therapy and further workup for her elevated platelets. Patient refused admission under seen all risks including and disability. The alternative we have chosen is to change her antibiotics and she will follow-up with PCP next week. Patient is stable for discharge. [] Dragon Disclaimer Dragon Disclaimer This electronic medical record was generated, in whole or in part, using a voice recognition dictation system. Departure Departure Impression: Primary Impression: UTI (urinary tract infection) Additional Impressions: Elevated platelet count Abdominal pain Disposition: HOME, SELF-CARE Condition: STABLE Referrals: UNKNOWN PCP NAME (PCP) Patient Instructions: Urinary Tract Infection, [id number] Additional Instructions: Please follow-up with your family physician in the next one to 2 days and return if symptoms increase Scripts Cephalexin (KEFLEX) 500 Mg Capsule 1 CAP PO TID, #21 CAP Prov: LIZ GALEANO DO 10/22/16 Problem Qualifiers LIZ GALEANO DO Oct 22, 2016 19:00
[2016-10-22 19:30] LABS: BILIRUBIN,URINE NEGATIVE (NEG); GLUCOSE,URINE NEGATIVE (NEG); NITRITE,URINE NEGATIVE (NEG); PH,URINE 7.5; PROTEIN,URINE NEGATIVE (NEG-TRACE); UROBILINOGEN,URINE 0.2 mg/dL (0.2 mg/dL)
[2016-10-22 19:47] LABS: BASO # 0.1 x10^3/uL (0.0-0.2); BASO % 1 % (0-3); EOS % 2 % (0-3); HEMATOCRIT 29.7 % (36.0-47.0); HEMOGLOBIN 9.4 g/dL (12.0-15.5); LYMPH # 3.9 x10^3/uL (1.0-4.8); LYMPH % 40 % (24-48); MEAN CORPUSCULAR HEMOGLOBIN 27 pg (25-35); MEAN CORPUSCULAR HGB CONC 32 g/dL (31-37); MEAN CORPUSCULAR VOLUME 86 fL (79-100); MONO % 6 % (0-9); NEUT % 50 % (31-73); RED BLOOD COUNT 3.47 x10^6/uL (3.50-5.40); RED CELL DISTRIBUTION WIDTH 20.2 % (11.5-14.5); WHITE BLOOD COUNT 9.8 x10^3/uL (4.0-11.0)
[2016-10-22 19:48] LABS: BACTERIA,URINE MODERATE /HPF (0-FEW); RBC,URINE 0 /HPF (0-2); SQUAMOUS EPITHELIAL CELL,UR MANY /LPF; WBC,URINE 20-40 /HPF (0-4)
[2016-10-22 19:54] LABS: CALCIUM 9.3 mg/dL (8.5-10.1); CREATININE 0.9 mg/dL (0.6-1.0); GFR 72.1
[2016-10-22 19:55] LABS: PLATELET COUNT 946 x10^3/uL (140-400)
[2016-10-22 20:01] LABS: ALBUMIN 3.9 g/dL (3.4-5.0); TOTAL BILIRUBIN 0.3 mg/dL (0.2-1.0); TOTAL PROTEIN 7.7 g/dL (6.4-8.2)
[2016-10-22 20:18] LABS: PLT ESTIMATE INCREASED (ADEQUATE)
[2016-10-22 20:19] LABS: ANISOCYTOSIS SLIGHT; POIKILOCYTOSIS SLIGHT; TARGET CELLS FEW
[2016-10-22 20:20] LABS: SCHISTOCYTES FEW
[2016-10-22 20:23] LABS: ACANTHOCYTES OCC; HOWELL-JOLLY BODIES PRESENT
[2016-10-22] MEDS ORDERED: fentaNYL PF VIAL 100 MCG/2 ML VIAL IV ONE (21:45)
[2016-10-22] MEDS ORDERED: IOHEXOL 300 MG/ML 75 ML VIAL IV ONE (22:00)
[2016-10-22] MEDS ORDERED: CONTRAST GIVEN MC PRN (22:00)
--- NOTE | 2016-10-22 22:21 | RAD ---
Exam performed: CT scan of the abdomen and pelvis with contrast Clinical Indication:History of lupus, patient is coughing up blood with blood in the urine today. Seizure 3 weeks ago with closed skull fracture Date of Service: 09/22/2016 comparison: CT abdomen and pelvis from September 08, 2016 Technique: Contiguous helical acquisitions are obtained from the lung bases to the pelvis during intravenous administration of [75 mL of Omnipaque 300]. Sagittal and coronal reformatted images were obtained and reviewed. CT abdomen findings: The lung bases appear essentially clear. Visualized heart is normal The liver and pancreas appears unremarkable. Cholecystectomy. 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 The small bowel loops appear nondilated and unremarkable. Aorta is normal in caliber. There is no retroperitoneal lymphadenopathy or mass lesions. No bowel related inflammatory stranding is noted. No obvious stranding is seen in the pericecal region. CT pelvis findings: The pelvic bowel loops are nondilated and unremarkable. The urinary bladder is well distended and normal . Uterus is anteverted. 2.2 cm cyst in the right adnexa likely physiological.Interrogation of bone windows demonstrates no obvious bony abnormality. Sagittal and coronal reformatted images were obtained and reviewed which demonstrate no additional findings. Impression abdomen and pelvis : 1. No acute intra-abdominal or pelvic process is detected. 2. A 2.2 cm right ovarian cyst probably pathological. PQRS Compliance Statement: One or more of the following individualized dose reduction techniques were utilized for this examination: 1. Automated exposure control 2. Adjustment of the mA and/or kV according to patient size 3. Use of iterative reconstruction technique Electronically signed by: Radha Lujan MD (10/22/2016 10:18 PM) [id number]
[2016-10-22] MEDS ORDERED: CEPH-264 PO (23:17)
[2016-10-23 00:09] VITALS: BP 117/75
--- NOTE | 2016-10-23 08:50 | RAD ---
Chest, 2 views, 10/22/2016: History: Coughing up blood Comparison is made to a study from 09/29/2016. The heart size and pulmonary vascularity are normal. An unchanged density projected over the anterior end of the right first rib is probably due to cartilaginous calcification at the rib end. No pulmonary infiltrate is seen. There is no evidence of pleural fluid. IMPRESSION: No acute cardiopulmonary abnormality is detected.
--- NOTE | 2016-10-25 10:02 | VNOTE ---
CALL BACK NOTE CALL BACK Microbiology 10/22/16 Urine Culture - Final, Complete 10/22/16 Urine Culture Result 1 (KIM) - Final, Complete 10/22/16 Antimicrobic Susceptibility - Final, Complete Attempted to contact patient [phone] in regards to patient's urinalysis was positive for Escherichia coli. Patient was placed on Keflex according to the culture and sensitivity report Keflex as an intermediate coverage. Patient should be changed to Macrobid 100 mg twice a day for the next 7 days. Message was left for patient to call the emergency department. I did not see or treat this patient. I am signing this note administratively. KEISHA IGLESIAS APRN Oct 25, 2016 10:02 SHAVON NOGUERA MD Oct 26, 2016 07:51
== END 2016-10-23 00:12 | disposition home or self-care (01) ==
LOC: ER 18:10
DX: N39.0 Urinary tract infection, site not specified (principal); D69.1 Qualitative platelet defects; R10.30 Lower abdominal pain, unspecified; M32.9 Systemic lupus erythematosus, unspecified; N18.9 Chronic kidney disease, unspecified; Z90.49 Acquired absence of other specified parts of digestive tract; Z90.81 Acquired absence of spleen; Z88.5 Allergy status to narcotic agent; Z88.6 Allergy status to analgesic agent
CPT/HCPCS: 36415; 71020; 74177; 80053; 81001; 81025; 85025; 87086; 96365; 96375; 99285; J0690; J3010; Q9967

== ENCOUNTER 2016-10-28 10:17 | Emergency (ER) | payer OTHER ==
[2016-10-28] MEDS ORDERED: CIPROFLOXACIN 400MG PREMIX 200 ML IV ONE (11:15)
[2016-10-28] MEDS ORDERED: IV NORMAL SALINE 1000ML BAG 1,000 ML IV ONE (11:15)
[2016-10-28 11:22] LABS: BILIRUBIN,URINE NEGATIVE (NEG); GLUCOSE,URINE NEGATIVE (NEG); NITRITE,URINE NEGATIVE (NEG); PROTEIN,URINE NEGATIVE (NEG-TRACE); UROBILINOGEN,URINE 0.2 mg/dL (0.2 mg/dL)
[2016-10-28 11:30] LABS: SQUAMOUS EPITHELIAL CELL,UR MOD /LPF
[2016-10-28 11:31] LABS: BACTERIA,URINE FEW /HPF (0-FEW); RBC,URINE 0 /HPF (0-2)
[2016-10-28 11:50] VITALS: BP 105/64
[2016-10-28 12:15] LABS: BASO % 1 % (0-3); EOS % 0 % (0-3); HEMATOCRIT 31.3 % (36.0-47.0); HEMOGLOBIN 9.8 g/dL (12.0-15.5); LYMPH # 2.1 x10^3/uL (1.0-4.8); LYMPH % 39 % (24-48); MEAN CORPUSCULAR HEMOGLOBIN 27 pg (25-35); MEAN CORPUSCULAR HGB CONC 31 g/dL (31-37); MEAN CORPUSCULAR VOLUME 86 fL (79-100); MONO % 7 % (0-9); NEUT % 52 % (31-73); RED BLOOD COUNT 3.65 x10^6/uL (3.50-5.40); RED CELL DISTRIBUTION WIDTH 19.2 % (11.5-14.5); WHITE BLOOD COUNT 5.3 x10^3/uL (4.0-11.0)
[2016-10-28] MEDS ORDERED: ONDANSETRON PF 4 MG/2 ML VIAL. IV ONE (12:15)
[2016-10-28] MEDS ORDERED: fentaNYL PF VIAL 100 MCG/2 ML VIAL IV ONE (12:15)
[2016-10-28 12:16] LABS: PLATELET COUNT 878 x10^3/uL (140-400)
[2016-10-28 12:23] LABS: CALCIUM 8.8 mg/dL (8.5-10.1); GFR 63.9; POTASSIUM 4.4 mmol/L (3.5-5.1)
[2016-10-28 12:29] LABS: ALBUMIN 4.2 g/dL (3.4-5.0); ALBUMIN/GLOBULIN RATIO 1.1 (1.0-1.7); TOTAL BILIRUBIN 0.2 mg/dL (0.2-1.0); TOTAL PROTEIN 8.2 g/dL (6.4-8.2)
[2016-10-28] MEDS ORDERED: NITR100C62 PO (12:46)
--- NOTE | 2016-10-28 12:47 | PHYS DOC ---
Past Medical History Past Medical History: Migraines, Seizure, Other Additional Past Medical Histor: CHRONIC KIDNEY INFECTIONS, LUPUS, CHONIC PYELONEPHRITIS Past Surgical History: Appendectomy, Cholecystectomy, Splenectomy, Other Additional Past Surgical Histo: LEFT OVARY REMOVAL Alcohol Use: None Drug Use: None Adult General Chief Complaint Chief Complaint: PAIN ON URINATION [facility] HPI Patient is a 35 year old female presents to the emergency department with right flank pain. Patient states that yesterday she developed right flank pain with nausea and vomiting. The patient reports that she was here on 22 October diagnosed with a urinary tract infection. Patient was placed on Keflex and discharged home. The urine culture report was returned and the Escherichia coli was resistant to Keflex. Recommended the patient be changed to Macrobid however patient did not return the phone call for prescription change. She reports that she has not had a fever. There is no radiation of flank pain into the abdomen. Review of Systems Review of Systems Constitutional: Denies fever or chills [] Eyes: Denies change in visual acuity, redness, or eye pain [] HENT: Denies nasal congestion or sore throat [] Respiratory: Denies cough or shortness of breath [] Cardiovascular: No additional information not addressed in HPI [] GI: She denies abdominal pain but does complain of nausea and vomiting without diarrhea. : Denies dysuria or hematuria, complain of right flank pain [] Musculoskeletal: Denies back pain or joint pain [] Integument: Denies rash or skin lesions [] Neurologic: Denies headache, focal weakness or sensory changes [] Endocrine: Denies polyuria or polydipsia [] Current Medications Current Medications Current Medications Medications (Trade) Dose Ordered Sig/[facility] Start Time Stop Time Status Last Admin Dose Admin Fentanyl Citrate (Fentanyl 2ml Vial) 50 mcg 1X ONCE 10/28/16 12:15 10/28/16 12:16 DC 10/28/16 12:20 50 MCG Ondansetron HCl (Zofran) 4 mg 1X ONCE 10/28/16 12:15 10/28/16 12:16 DC 10/28/16 12:20 4 MG Sodium Chloride 1,000 ml @ 1,000 mls/hr 1X ONCE 10/28/16 11:15 10/28/16 12:14 DC 10/28/16 11:56 1,000 MLS/HR Allergies Allergies Allergies Coded Allergies Type Severity Reaction Last Updated Verified tramadol Allergy Severe seizure 01/18/16 Yes morphine Allergy Intermediate Rash 02/06/16 Yes Physical Exam Physical Exam Constitutional: Well developed, well nourished, no acute distress, non-toxic appearance. [] HENT: Normocephalic, atraumatic, bilateral external ears normal, oropharynx moist, no oral exudates, nose normal. [] Eyes: PERRLA, EOMI, conjunctiva normal, no discharge. [] Neck: Normal range of motion, no tenderness, supple, no stridor. [] Cardiovascular:Heart rate regular rhythm, no murmur [] Lungs & Thorax: Bilateral breath sounds clear to auscultation [] Abdomen: Bowel sounds normal, soft, no tenderness, no masses, no pulsatile masses. [] Skin: Warm, dry, no erythema, no rash. [] Back: No tenderness, no CVA tenderness. [] Extremities: No tenderness, no cyanosis, no clubbing, ROM intact, no edema. [] Neurologic: Alert and oriented X 3, normal motor function, normal sensory function, no focal deficits noted. [] Psychologic: Affect normal, judgement normal, mood normal. [] Current Patient Data Vital Signs Vital Signs Date Time Temp Pulse Resp B/P (MAP) Pulse Ox O2 Delivery O2 Flow Rate FiO2 10/28/16 11:50 82 105/64 (78) 97 Room Air 10/28/16 11:04 98.4 16 98.4 Lab Values Laboratory Tests Test 10/28/16 10:50 10/28/16 11:12 10/28/16 12:10 Urine Collection Type Unknown Urine Color Yellow Urine Clarity Clear Urine pH 7.0 Urine Specific [place] 1.020 Urine Protein Negative mg/dL (NEG-TRACE) Urine Glucose (UA) Negative mg/dL (NEG) Urine Ketones (Stick) Negative mg/dL (NEG) Urine Blood Negative (NEG) Urine Nitrite Negative (NEG) Urine Bilirubin Negative (NEG) Urine Urobilinogen Dipstick 0.2 mg/dL (0.2 mg/dL) Urine Leukocyte Esterase Negative (NEG) Urine RBC 0 /HPF (0-2) Urine WBC 1-4 /HPF (0-4) Urine Squamous Epithelial Cells Mod /LPF Urine Bacteria Few /HPF (0-FEW) Urine Mucus Mod /LPF POC Urine HCG, Qualitative Hcg negative (Negative) White Blood Count 5.3 x10^3/uL (4.0-11.0) Red Blood Count 3.65 x10^6/uL (3.50-5.40) Hemoglobin 9.8 g/dL (12.0-15.5) L Hematocrit 31.3 % (36.0-47.0) L Mean Corpuscular Volume 86 fL (79-100) Mean Corpuscular Hemoglobin 27 pg (25-35) Mean Corpuscular Hemoglobin Concent 31 g/dL (31-37) Red Cell Distribution Width 19.2 % (11.5-14.5) H Platelet Count 878 x10^3/uL (140-400) H Neutrophils (%) (Auto) 52 % (31-73) Lymphocytes (%) (Auto) 39 % (24-48) Monocytes (%) (Auto) 7 % (0-9) Eosinophils (%) (Auto) 0 % (0-3) Basophils (%) (Auto) 1 % (0-3) Neutrophils # (Auto) 2.8 x10^3uL (1.8-7.7) Lymphocytes # (Auto) 2.1 x10^3/uL (1.0-4.8) Monocytes # (Auto) 0.4 x10^3/uL (0.0-1.1) Eosinophils # (Auto) 0.0 x10^3/uL (0.0-0.7) Basophils # (Auto) 0.0 x10^3/uL (0.0-0.2) Sodium Level 140 mmol/L (136-145) Potassium Level 4.4 mmol/L (3.5-5.1) Chloride Level 107 mmol/L (98-107) Carbon Dioxide Level 22 mmol/L (21-32) Anion Gap 11 (6-14) Blood Urea Nitrogen 14 mg/dL (7-20) Creatinine 1.0 mg/dL (0.6-1.0) Estimated GFR (Cockcroft-Gault) 63.9 BUN/Creatinine Ratio 14 (6-20) Glucose Level 95 mg/dL (70-99) Calcium Level 8.8 mg/dL (8.5-10.1) Total Bilirubin 0.2 mg/dL (0.2-1.0) Aspartate Amino Transferase (AST) 12 U/L (15-37) L Alanine Aminotransferase (ALT) 19 U/L (14-59) Alkaline Phosphatase 113 U/L (46-116) Total Protein 8.2 g/dL (6.4-8.2) Albumin 4.2 g/dL (3.4-5.0) Albumin/Globulin Ratio 1.1 (1.0-1.7) Laboratory Tests 10/28/16 12:10 Laboratory Tests 10/28/16 12:10 EKG EKG [] Radiology/Procedures Radiology/Procedures [] Course & Med Decision Making Course & Med Decision Making Pertinent Labs and Imaging studies reviewed. (See chart for details) []She was given fentanyl 50 g IV. Urinalysis looked improved from previous visit. CBC and chemistry within normal limits with this patient. Patient's and atraumatic will be changed as previously recommended to Macrobid 100 mg twice a day. She'll be discharged home with naprosyn for pain Dragon Disclaimer Dragon Disclaimer This electronic medical record was generated, in whole or in part, using a voice recognition dictation system. Departure Departure Impression: Primary Impression: Back pain Disposition: 01 HOME, SELF-CARE Condition: STABLE Referrals: UNKNOWN PCP NAME (PCP) Patient Instructions: Back Pain, Adult Additional Instructions: Please stop the Keflex that you have been using for urinary tract infection. The urine cultures showed resistances organism. Your urinalysis looks improved from previous visit however we will change her antibiotic to Macrobid, 100 mg twice a day for 7 days. Scripts Nitrofurantoin Monohyd/M-Cryst (MACROBID 100 MG CAPSULE) 100 Mg Capsule 1 CAP PO BID, #14 CAP Prov: FRANSISCO GILLIS APRN 10/28/16 Problem Qualifiers Primary Impression: Back pain Back pain location: low back pain Chronicity: acute Back pain laterality: right Sciatica presence: without sciatica Qualified Codes: M54.5 - Low back pain FRANSISCO GILLIS APRN Oct 28, 2016 12:46
[2016-10-28] MEDS ORDERED: CIPROFLOXACIN 400MG PREMIX 200 ML IV SCH (21:00)
== END 2016-10-28 13:12 | disposition home or self-care (01) ==
LOC: ER 10:17
DX: M54.5 Low back pain (principal); R11.2 Nausea with vomiting, unspecified; G43.909 Migraine, unspecified, not intractable, without status migrainosus; L93.0 Discoid lupus erythematosus; Z88.5 Allergy status to narcotic agent; Z90.49 Acquired absence of other specified parts of digestive tract; Z90.81 Acquired absence of spleen
CPT/HCPCS: 36415; 80053; 81001; 81025; 85025; 96361; 96374; 96375; 99285; J0744; J2405; J3010; J7030

== ENCOUNTER 2016-12-30 16:22 | Emergency (ER) | payer OTHER ==
[~2016-12-30] VITALS: Ht 157.5 cm; Wt 68.0 kg
[2016-12-30 16:43] LABS: BILIRUBIN,URINE NEGATIVE (NEG); GLUCOSE,URINE NEGATIVE (NEG); NITRITE,URINE NEGATIVE (NEG); PH,URINE 6.5; PROTEIN,URINE NEGATIVE (NEG-TRACE); UROBILINOGEN,URINE 0.2 mg/dL (0.2 mg/dL)
[2016-12-30] MEDS ORDERED: IV NORMAL SALINE 1000ML BAG 1,000 ML IV ONE (16:45)
[2016-12-30] MEDS ORDERED: fentaNYL PF VIAL 100 MCG/2 ML VIAL IV ONE ×2 (16:45→18:15)
--- NOTE | 2016-12-30 16:46 | PHYS DOC ---
Past Medical History Past Medical History: Migraines, Seizure, Other Additional Past Medical Histor: CHRONIC KIDNEY INFECTIONS, LUPUS, CHONIC PYELONEPHRITIS Past Surgical History: Appendectomy, Cholecystectomy, Splenectomy, Other Additional Past Surgical Histo: LEFT OVARY REMOVAL Alcohol Use: None Drug Use: None Adult General Chief Complaint Chief Complaint: FLANK PAIN [facility] HPI Patient is a 36 year old female with a history of migraines, kidney infections , kidney stones, bladder infections, who presents today with moderate right flank pain that has been going on for 3 days. Patient also states she had a fever today and took Tylenol prior to coming to the ED. Patient denies any nausea vomiting. Denies any hematuria urgency frequency. Review of Systems Review of Systems Constitutional: Reports fever Eyes: Denies change in visual acuity, redness, or eye pain [] HENT: Denies nasal congestion or sore throat [] Respiratory: Denies cough or shortness of breath [] Cardiovascular: No additional information not addressed in HPI [] GI: Denies abdominal pain, nausea, vomiting, bloody stools or diarrhea [] : Reports right flank pain. Denies dysuria or hematuria [] Musculoskeletal: Denies back pain or joint pain [] Integument: Denies rash or skin lesions [] Neurologic: Denies headache, focal weakness or sensory changes [] All other systems were reviewed and found to be within normal limits, except as documented in this note. Current Medications Current Medications Current Medications Medications (Trade) Dose Ordered Sig/[facility] Start Time Stop Time Status Last Admin Dose Admin Ciprofloxacin/ Dextrose 200 ml @ 200 mls/hr Q12H 12/30/16 18:00 12/30/16 18:12 200 MLS/HR Fentanyl Citrate (Fentanyl 2ml Vial) 50 mcg 1X ONCE 12/30/16 18:15 12/30/16 18:16 DC Ondansetron HCl (Zofran) 4 mg 1X ONCE 12/30/16 17:30 12/30/16 17:31 DC 12/30/16 17:26 4 MG Sodium Chloride 1,000 ml @ 1,000 mls/hr 1X ONCE 12/30/16 16:45 12/30/16 17:44 DC 12/30/16 17:18 1,000 MLS/HR Allergies Allergies Allergies Coded Allergies Type Severity Reaction Last Updated Verified tramadol Allergy Severe seizure 01/18/16 Yes morphine Allergy Intermediate Rash 02/06/16 Yes Physical Exam Physical Exam Constitutional: Well developed, well nourished, no acute distress, non-toxic appearance. [] HENT: Normocephalic, atraumatic, bilateral external ears normal, oropharynx moist, no oral exudates, nose normal. [] Eyes: PERRLA, EOMI, conjunctiva normal, no discharge. [] Neck: Normal range of motion, no tenderness, supple, no stridor. [] Cardiovascular:Heart rate regular rhythm, no murmur [] Lungs & Thorax: Bilateral breath sounds clear to auscultation [] Abdomen: Bowel sounds normal, soft, no tenderness, no masses, no pulsatile masses. [] Skin: Warm, dry, no erythema, no rash. [] Back: No tenderness, no CVA tenderness. [] Extremities: No tenderness, no cyanosis, no clubbing, ROM intact, no edema. [] Neurologic: Alert and oriented X 3, normal motor function, normal sensory function, no focal deficits noted. [] Psychologic: Affect normal, judgement normal, mood normal. [] Current Patient Data Vital Signs Vital Signs Date Time Temp Pulse Resp B/P (MAP) Pulse Ox O2 Delivery O2 Flow Rate FiO2 12/30/16 17:19 22 99 Room Air 12/30/16 16:33 97.9 86 137/75 (95) 97.9 Lab Values Laboratory Tests Test 12/30/16 16:31 12/30/16 16:32 12/30/16 17:35 POC Urine HCG, Qualitative Hcg negative (Negative) Urine Collection Type Unknown Urine Color Yellow Urine Clarity Clear Urine pH 6.5 Urine Specific [place] 1.015 Urine Protein Negative mg/dL (NEG-TRACE) Urine Glucose (UA) Negative mg/dL (NEG) Urine Ketones (Stick) Negative mg/dL (NEG) Urine Blood Negative (NEG) Urine Nitrite Negative (NEG) Urine Bilirubin Negative (NEG) Urine Urobilinogen Dipstick 0.2 mg/dL (0.2 mg/dL) Urine Leukocyte Esterase Moderate (NEG) Urine RBC 0 /HPF (0-2) Urine WBC 11-20 /HPF (0-4) Urine Squamous Epithelial Cells Many /LPF Urine Bacteria Few /HPF (0-FEW) White Blood Count 8.0 x10^3/uL (4.0-11.0) Red Blood Count 3.66 x10^6/uL (3.50-5.40) Hemoglobin 9.1 g/dL (12.0-15.5) L Hematocrit 29.6 % (36.0-47.0) L Mean Corpuscular Volume 81 fL (79-100) Mean Corpuscular Hemoglobin 25 pg (25-35) Mean Corpuscular Hemoglobin Concent 31 g/dL (31-37) Red Cell Distribution Width 16.6 % (11.5-14.5) H Platelet Count 555 x10^3/uL (140-400) H Neutrophils (%) (Auto) 37 % (31-73) Lymphocytes (%) (Auto) 54 % (24-48) H Monocytes (%) (Auto) 7 % (0-9) Eosinophils (%) (Auto) 1 % (0-3) Basophils (%) (Auto) 1 % (0-3) Neutrophils # (Auto) 3.0 x10^3uL (1.8-7.7) Lymphocytes # (Auto) 4.3 x10^3/uL (1.0-4.8) Monocytes # (Auto) 0.6 x10^3/uL (0.0-1.1) Eosinophils # (Auto) 0.1 x10^3/uL (0.0-0.7) Basophils # (Auto) 0.1 x10^3/uL (0.0-0.2) Platelet Estimate Pending Sodium Level 139 mmol/L (136-145) Potassium Level 3.6 mmol/L (3.5-5.1) Chloride Level 107 mmol/L (98-107) Carbon Dioxide Level 20 mmol/L (21-32) L Anion Gap 12 (6-14) Blood Urea Nitrogen 13 mg/dL (7-20) Creatinine 0.7 mg/dL (0.6-1.0) Estimated GFR (Cockcroft-Gault) 95.8 BUN/Creatinine Ratio 19 (6-20) Glucose Level 91 mg/dL (70-99) Calcium Level 7.9 mg/dL (8.5-10.1) L Total Bilirubin 0.2 mg/dL (0.2-1.0) Aspartate Amino Transferase (AST) 16 U/L (15-37) Alanine Aminotransferase (ALT) 27 U/L (14-59) Alkaline Phosphatase 108 U/L (46-116) Total Protein 6.7 g/dL (6.4-8.2) Albumin 3.5 g/dL (3.4-5.0) Albumin/Globulin Ratio 1.1 (1.0-1.7) Lipase 147 U/L (73-393) Laboratory Tests 12/30/16 17:35 Laboratory Tests 12/30/16 17:35 EKG EKG [] Radiology/Procedures Radiology/Procedures []PROCEDURE: CT ABDOMEN PELVIS WO CONTRAST CT abdomen and pelvis without contrast 12/30/2016 Clinical indication: Flank pain, fever, dysuria. Comparison: CT abdomen pelvis 10/22/2016. Technique: Multiple CT images of the abdomen and pelvis were obtained without contrast according to standard protocol. PQRS Compliance Statement: One or more of the following individualized dose reduction techniques were utilized for this examination: 1. Automated exposure control 2. Adjustment of the mA and/or kV according to patient size 3. Use of iterative reconstruction technique Findings: Heart size is normal. Visualized lung bases are clear. Evaluation of the solid abdominopelvic viscera, lymphadenopathy and vasculature is limited in the absence of intravenous contrast. Unenhanced contours of the liver, adrenal glands and pancreas are unremarkable. Prior cholecystectomy. The spleen is absent. There is a 2 mm nondestructive calculus in the interpolar left kidney. No hydroureteronephrosis or right nephrolithiasis. Abdominal aorta is normal in caliber. Small and large bowel loops are normal in caliber without obstruction. Appendix not clearly identified, however no secondary findings of appendicitis at the base of the cecum. No abdominal free fluid. Urinary bladder is decompressed. There is a right adnexal cyst measuring 2.3 cm, likely physiologic. There are no destructive osseous lesions. Impression: 1. Tiny 2 mm nonobstructive left renal calculus without hydronephrosis. 2. No noncontrast CT evidence of acute abdominal or pelvic process. 3. Right adnexal cyst, likely physiologic. Course & Med Decision Making Course & Med Decision Making Pertinent Labs and Imaging studies reviewed. (See chart for details) This is a 36-year-old female patient with history of kidney infection presenting to the ED today with a right flank pain and a fever at home. Negative urine hCG, urine positive for infection. CBC with normal WBC and chronic anemia with hgb of 9.1 and HCT of 26.9 recommended OTC vitamins , CMP lipase with no acute findings. CT of the abdomen and pelvic was noted for 2 mm left renal calculi. Patient was started on Cipro in the emergency room. She was discharged with Cipro, her urine was sent for culture. She has good follow-up with her PCP. I recommended she follows up in the next 3-5 days. She was instructed to return to the ED at any point symptoms worsen. Dragon Disclaimer Dragon Disclaimer This electronic medical record was generated, in whole or in part, using a voice recognition dictation system. Departure Departure Impression: Primary Impression: Acute pyelonephritis Additional Impressions: Anemia Renal calculi Disposition: HOME, SELF-CARE Condition: STABLE Referrals: UNKNOWN PCP NAME (PCP) Follow-up with the primary care doctor in the next 3-5 days. Patient Instructions: Anemia, FAQs, Kidney Stones, [id number], Pyelonephritis , Adult Additional Instructions: You were seen for a kidney infection. Please take the prescribed antibiotics as ordered until completed. Push fluids. Urine hemoglobin was 9.1, it appears to ran low consider taking vitamins. Follow-up with your own doctor in the next 3-5 days. We highly recommend you return to the emergency room at any point symptoms worsen. Scripts Tamsulosin Hcl (FLOMAX) 0.4 Mg Cap.er.24h 1 CAP PO DAILY, #7 CAP 11 Refills Prov: MILA BERRY APRN 12/30/16 Hydrocodone/Apap 5-325 (NORCO 5-325 TABLET) 1 Each Tablet 1 TAB PO Q4-6HRS, #14 TAB Prov: MILA BERRY APRN 12/30/16 Ondansetron (ZOFRAN ODT) 4 Mg Tab.rapdis 1 TAB SL Q8HRS, #15 TAB Prov: MILA BERRY APRN 12/30/16 Ciprofloxacin Hcl (CIPRO) 500 Mg Tablet 1 TAB PO BID, #14 TAB Prov: MILA BERRY APRN 12/30/16 Problem Qualifiers Additional Impressions: Anemia Anemia type: unspecified type Qualified Codes: D64.9 - Anemia, unspecified MILA BERRY APRN Dec 30, 2016 16:46
[2016-12-30 16:52] LABS: BACTERIA,URINE FEW /HPF (0-FEW); RBC,URINE 0 /HPF (0-2); SQUAMOUS EPITHELIAL CELL,UR MANY /LPF
[2016-12-30] MEDS ORDERED: ONDANSETRON PF 4 MG/2 ML VIAL. IV ONE (17:30)
--- NOTE | 2016-12-30 17:32 | RAD ---
CT abdomen and pelvis without contrast 12/30/2016 Clinical indication: Flank pain, fever, dysuria. Comparison: CT abdomen pelvis 10/22/2016. Technique: Multiple CT images of the abdomen and pelvis were obtained without contrast according to standard protocol. PQRS Compliance Statement: One or more of the following individualized dose reduction techniques were utilized for this examination: 1. Automated exposure control 2. Adjustment of the mA and/or kV according to patient size 3. Use of iterative reconstruction technique Findings: Heart size is normal. Visualized lung bases are clear. Evaluation of the solid abdominopelvic viscera, lymphadenopathy and vasculature is limited in the absence of intravenous contrast. Unenhanced contours of the liver, adrenal glands and pancreas are unremarkable. Prior cholecystectomy. The spleen is absent. There is a 2 mm nondestructive calculus in the interpolar left kidney. No hydroureteronephrosis or right nephrolithiasis. Abdominal aorta is normal in caliber. Small and large bowel loops are normal in caliber without obstruction. Appendix not clearly identified, however no secondary findings of appendicitis at the base of the cecum. No abdominal free fluid. Urinary bladder is decompressed. There is a right adnexal cyst measuring 2.3 cm, likely physiologic. There are no destructive osseous lesions. Impression: 1. Tiny 2 mm nonobstructive left renal calculus without hydronephrosis. 2. No noncontrast CT evidence of acute abdominal or pelvic process. 3. Right adnexal cyst, likely physiologic.
[2016-12-30 17:41] LABS: BASO # 0.1 x10^3/uL (0.0-0.2); BASO % 1 % (0-3); EOS % 1 % (0-3); HEMATOCRIT 29.6 % (36.0-47.0); HEMOGLOBIN 9.1 g/dL (12.0-15.5); LYMPH # 4.3 x10^3/uL (1.0-4.8); LYMPH % 54 % (24-48); MEAN CORPUSCULAR HEMOGLOBIN 25 pg (25-35); MEAN CORPUSCULAR HGB CONC 31 g/dL (31-37); MEAN CORPUSCULAR VOLUME 81 fL (79-100); MONO % 7 % (0-9); NEUT % 37 % (31-73); PLATELET COUNT 555 x10^3/uL (140-400); RED BLOOD COUNT 3.66 x10^6/uL (3.50-5.40); RED CELL DISTRIBUTION WIDTH 16.6 % (11.5-14.5)
[2016-12-30 17:54] LABS: CALCIUM 7.9 mg/dL (8.5-10.1); CREATININE 0.7 mg/dL (0.6-1.0); GFR 95.8; POTASSIUM 3.6 mmol/L (3.5-5.1)
[2016-12-30 18:00] LABS: ALBUMIN 3.5 g/dL (3.4-5.0); ALBUMIN/GLOBULIN RATIO 1.1 (1.0-1.7); TOTAL BILIRUBIN 0.2 mg/dL (0.2-1.0); TOTAL PROTEIN 6.7 g/dL (6.4-8.2)
[2016-12-30] MEDS ORDERED: CIPROFLOXACIN 400MG PREMIX 200 ML IV SCH (18:00)
[2016-12-30 18:23] LABS: % BASOS 1 % (0-3); HYPOCHROMIA SLIGHT; PLT ESTIMATE INCREASED (ADEQUATE)
[2016-12-30 18:24] LABS: ANISOCYTOSIS SLIGHT; HOWELL-JOLLY BODIES PRESENT; OVALOCYTES FEW; POIKILOCYTOSIS SLIGHT; SCHISTOCYTES FEW; SPHEROCYTES OCC; TARGET CELLS FEW
[2016-12-30 18:25] LABS: ACANTHOCYTES PRESENT
[2016-12-30] MEDS ORDERED: ONDA4TAB10 SL (18:29)
[2016-12-30] MEDS ORDERED: CIPR500T94 PO (18:29)
[2016-12-30] MEDS ORDERED: HYDR-971 PO (18:29)
[2016-12-30] MEDS ORDERED: TAMS0.4C97 PO (18:29)
[2016-12-30 19:08] VITALS: BP 133/84
== END 2016-12-30 19:37 | disposition home or self-care (01) ==
LOC: ER 16:22
DX: N10 Acute pyelonephritis (principal); D64.9 Anemia, unspecified; N20.0 Calculus of kidney; G89.29 Other chronic pain; G43.909 Migraine, unspecified, not intractable, without status migrainosus; Z90.49 Acquired absence of other specified parts of digestive tract; Z90.710 Acquired absence of both cervix and uterus; Z90.81 Acquired absence of spleen; Z88.5 Allergy status to narcotic agent; Z88.6 Allergy status to analgesic agent
CPT/HCPCS: 36415; 74176; 80053; 81001; 81025; 83690; 85007; 85025; 87086; 96361; 96365; 96375; 96376; 99285; J0744; J2405; J3010; J7030

== ENCOUNTER 2017-01-02 19:21 | Emergency (ER) | payer OTHER ==
[~2017-01-02] VITALS: Ht 157.5 cm; Wt 69.9 kg
[~2017-01-02 19:21] MED LIST changes: +ONDA4TAB10 SL; +TAMS0.4C97 PO
[2017-01-02 19:47] LABS: BASO # 0.1 x10^3/uL (0.0-0.2); BASO % 1 % (0-3); EOS % 0 % (0-3); HEMATOCRIT 31.5 % (36.0-47.0); HEMOGLOBIN 9.6 g/dL (12.0-15.5); LYMPH # 3.4 x10^3/uL (1.0-4.8); LYMPH % 58 % (24-48); MEAN CORPUSCULAR HEMOGLOBIN 25 pg (25-35); MEAN CORPUSCULAR HGB CONC 30 g/dL (31-37); MEAN CORPUSCULAR VOLUME 81 fL (79-100); MONO % 7 % (0-9); NEUT % 34 % (31-73); PLATELET COUNT 652 x10^3/uL (140-400); RED BLOOD COUNT 3.88 x10^6/uL (3.50-5.40); RED CELL DISTRIBUTION WIDTH 16.8 % (11.5-14.5); WHITE BLOOD COUNT 5.8 x10^3/uL (4.0-11.0)
--- NOTE | 2017-01-02 19:51 | PHYS DOC ---
Past Medical History Past Medical History: Migraines, Seizure, Other Additional Past Medical Histor: CHRONIC KIDNEY INFECTIONS, LUPUS, CHONIC PYELONEPHRITIS Past Surgical History: Appendectomy, Cholecystectomy, Splenectomy, Other Additional Past Surgical Histo: LEFT OVARY REMOVAL Alcohol Use: None Drug Use: None Adult General Chief Complaint Chief Complaint: ABDOMINAL PAIN HPI HPI Patient is a 36 year old female with a history of migraine headaches, kidney stones, kidney infections, bloody infections, who presents today for ongoing right flank pain radiating to the RUP for 6 days. Patient was seen in the ED by me 3 days ago for the flank pain complaint and was diagnosed with pyelonephritis and discharged with Cipro. She states her symptoms have gotten worse. She is complaining of fever nausea with no vomiting and chills. Patient denies any hematuria dysuria urgency or frequency. Patient has history of cholecystectomy. Review of Systems Review of Systems Constitutional: Denies fever or chills [] Eyes: Denies change in visual acuity, redness, or eye pain [] HENT: Denies nasal congestion or sore throat [] Respiratory: Denies cough or shortness of breath [] Cardiovascular: No additional information not addressed in HPI [] GI: Reports nausea. Denies abdominal pain, vomiting, bloody stools or diarrhea [] : Right flank pain. Denies dysuria or hematuria [] Musculoskeletal: Denies back pain or joint pain [] Integument: Denies rash or skin lesions [] Neurologic: Denies headache, focal weakness or sensory changes [] All other systems were reviewed and found to be within normal limits, except as documented in this note. Current Medications Current Medications Current Medications Medications (Trade) Dose Ordered Sig/Rain Start Time Stop Time Status Last Admin Dose Admin Dexamethasone Sodium Phosphate (Decadron) 10 mg 1X ONCE 01/02/17 20:30 01/02/17 20:31 DC 01/02/17 20:28 10 MG Famotidine (Pepcid Vial) 20 mg 1X ONCE 01/02/17 20:00 01/02/17 20:01 DC 01/02/17 20:16 20 MG Hydromorphone HCl (Dilaudid) 1 mg 1X ONCE 01/02/17 23:30 01/02/17 23:31 UNV Magnesium Citrate (Citroma) 296 ml 1X ONCE 01/02/17 23:30 01/02/17 23:31 UNV Ondansetron HCl (Zofran) 4 mg 1X ONCE 01/02/17 20:00 01/02/17 20:01 DC 01/02/17 20:16 4 MG Simethicone (Gas-X) 80 mg 1X STAT 01/02/17 23:20 01/02/17 23:21 UNV Allergies Allergies Allergies Coded Allergies Type Severity Reaction Last Updated Verified tramadol Allergy Severe seizure 01/18/16 Yes morphine Allergy Intermediate Rash 01/02/17 Yes Physical Exam Physical Exam Constitutional: Well developed, well nourished, no acute distress, non-toxic appearance. [] HENT: Normocephalic, atraumatic, bilateral external ears normal, oropharynx moist, no oral exudates, nose normal. [] Eyes: PERRLA, EOMI, conjunctiva normal, no discharge. [] Neck: Normal range of motion, no tenderness, supple, no stridor. [] Cardiovascular:Heart rate regular rhythm, no murmur [] Lungs & Thorax: Bilateral breath sounds clear to auscultation [] Abdomen: Bowel sounds normal, soft, no tenderness, no masses, no pulsatile masses. [] Skin: Warm, dry, no erythema, no rash. [] Back: No tenderness, mild bilateral CVA tenderness. [] Extremities: No tenderness, no cyanosis, no clubbing, ROM intact, no edema. [] Neurologic: Alert and oriented X 3, normal motor function, normal sensory function, no focal deficits noted. [] Psychologic: Affect normal, judgement normal, mood normal. [] Current Patient Data Vital Signs Vital Signs Date Time Temp Pulse Resp B/P (MAP) Pulse Ox O2 Delivery O2 Flow Rate FiO2 01/02/17 20:35 95 18 152/85 (107) 99 Room Air 01/02/17 19:30 98.5 98.5 Lab Values Laboratory Tests Test 01/02/17 19:35 01/02/17 19:45 01/02/17 19:49 White Blood Count 5.8 x10^3/uL (4.0-11.0) Red Blood Count 3.88 x10^6/uL (3.50-5.40) Hemoglobin 9.6 g/dL (12.0-15.5) L Hematocrit 31.5 % (36.0-47.0) L Mean Corpuscular Volume 81 fL (79-100) Mean Corpuscular Hemoglobin 25 pg (25-35) Mean Corpuscular Hemoglobin Concent 30 g/dL (31-37) L Red Cell Distribution Width 16.8 % (11.5-14.5) H Platelet Count 652 x10^3/uL (140-400) H Neutrophils (%) (Auto) 34 % (31-73) Lymphocytes (%) (Auto) 58 % (24-48) H Monocytes (%) (Auto) 7 % (0-9) Eosinophils (%) (Auto) 0 % (0-3) Basophils (%) (Auto) 1 % (0-3) Neutrophils # (Auto) 2.0 x10^3uL (1.8-7.7) Lymphocytes # (Auto) 3.4 x10^3/uL (1.0-4.8) Monocytes # (Auto) 0.4 x10^3/uL (0.0-1.1) Eosinophils # (Auto) 0.0 x10^3/uL (0.0-0.7) Basophils # (Auto) 0.1 x10^3/uL (0.0-0.2) Sodium Level 136 mmol/L (136-145) Potassium Level 3.3 mmol/L (3.5-5.1) L Chloride Level 104 mmol/L (98-107) Carbon Dioxide Level 21 mmol/L (21-32) Anion Gap 11 (6-14) Blood Urea Nitrogen 11 mg/dL (7-20) Creatinine 0.8 mg/dL (0.6-1.0) Estimated GFR (Cockcroft-Gault) 82.1 BUN/Creatinine Ratio 14 (6-20) Glucose Level 89 mg/dL (70-99) Calcium Level 8.3 mg/dL (8.5-10.1) L Total Bilirubin 0.2 mg/dL (0.2-1.0) Aspartate Amino Transferase (AST) 22 U/L (15-37) Alanine Aminotransferase (ALT) 29 U/L (14-59) Alkaline Phosphatase 108 U/L (46-116) Total Protein 7.8 g/dL (6.4-8.2) Albumin 4.1 g/dL (3.4-5.0) Albumin/Globulin Ratio 1.1 (1.0-1.7) Urine Collection Type U cath Urine Color Straw Urine Clarity Clear Urine pH 6.0 Urine Specific [place] 1.025 Urine Protein Negative mg/dL (NEG-TRACE) Urine Glucose (UA) Negative mg/dL (NEG) Urine Ketones (Stick) Negative mg/dL (NEG) Urine Blood Negative (NEG) Urine Nitrite Negative (NEG) Urine Bilirubin Negative (NEG) Urine Urobilinogen Dipstick 0.2 mg/dL (0.2 mg/dL) Urine Leukocyte Esterase Negative (NEG) Urine RBC Rare /HPF (0-2) Urine WBC 0 /HPF (0-4) Urine Squamous Epithelial Cells Mod /LPF Urine Bacteria 0 /HPF (0-FEW) Urine Mucus Mod /LPF POC Urine HCG, Qualitative Hcg negative (Negative) Laboratory Tests 01/02/17 19:35 Laboratory Tests 01/02/17 19:35 EKG EKG [] Radiology/Procedures Radiology/Procedures [] Course & Med Decision Making Course & Med Decision Making Pertinent Labs and Imaging studies reviewed. (See chart for details) Patient is in the ED with moderate right flank pain radiating to the right upper quadrant for the last 6 weeks. She was seen in the ED 3 days ago and was diagnosed with pyelonephritis and discharged with Cipro. She states she's not had any relief of her symptoms her symptoms got worse. Straight catheter urine was obtained which was negative for infection. CBC CMP lipase with no acute findings. Patient is requesting ultrasound of the abdomen, she states she believes she has gall stones despite having a cholecystectomy. Abdominal ultrasound was obtained which was negative for any acute findings but was noted for gas. We did recommended MRCP if patient still has right upper quadrant pain. The results were given to patient. I recommended she follows up with a pain clinic for chronic pain management. I also recommended Gas-X. Is also suspicious of constipation on recommended magnesium citrate which was given by the ED. She has a PCP as well as a GI doctor. I recommended she follows up as soon as possible. Dragon Disclaimer Dragon Disclaimer This electronic medical record was generated, in whole or in part, using a voice recognition dictation system. Departure Departure Impression: Primary Impression: Left flank pain Additional Impressions: Right flank pain Abdominal pain Gas pain Disposition: HOME, SELF-CARE Condition: STABLE Referrals: UNKNOWN PCP NAME (PCP) follow up in one week SERGIO BENNETT MD Patient Instructions: Abdominal Pain, Flank Pain, [id number] Additional Instructions: You were seen for ongoing abdominal and flank pain. Your work up in the emergency room was negative for any acute findings. We provided you pain clinic doctor consider following up in the next 1-2 weeks as well as your own doctors. Scripts Hydrocodone Bit/Acetaminophen (HYDROCODONE-APAP 7.5-325 ) 1 Each Tablet 1 TAB PO PRN Q6HRS Y for PAIN, #10 TAB 0 Refills Prov: MILA BERRY APRN 01/02/17 Cyclobenzaprine Hcl (CYCLOBENZAPRINE HCL) 10 Mg Tablet 1 TAB PO TID, #30 TAB Prov: MILA BERRY APRN 01/02/17 Problem Qualifiers Additional Impressions: Abdominal pain Abdominal location: right upper quadrant Qualified Codes: R10.11 - Right upper quadrant pain MILA BERRY APRN Jan 02, 2017 19:51
[2017-01-02 19:53] LABS: BILIRUBIN,URINE NEGATIVE (NEG); GLUCOSE,URINE NEGATIVE (NEG); NITRITE,URINE NEGATIVE (NEG); PROTEIN,URINE NEGATIVE (NEG-TRACE); UROBILINOGEN,URINE 0.2 mg/dL (0.2 mg/dL)
[2017-01-02 20:00] LABS: BACTERIA,URINE 0 /HPF (0-FEW); RBC,URINE RARE /HPF (0-2); WBC,URINE 0 /HPF (0-4)
[2017-01-02] MEDS ORDERED: FAMOTIDINE 20 MG/2 ML VIAL IVP ONE (20:00)
[2017-01-02] MEDS ORDERED: HYDROmorphone 2 MG/ML VIAL IV ONE ×3 (20:00→23:30)
[2017-01-02] MEDS ORDERED: ONDANSETRON PF 4 MG/2 ML VIAL. IV ONE (20:00)
[2017-01-02 20:01] LABS: SQUAMOUS EPITHELIAL CELL,UR MOD /LPF
[2017-01-02 20:02] LABS: CALCIUM 8.3 mg/dL (8.5-10.1); CREATININE 0.8 mg/dL (0.6-1.0); GFR 82.1; POTASSIUM 3.3 mmol/L (3.5-5.1)
[2017-01-02 20:07] LABS: ALBUMIN 4.1 g/dL (3.4-5.0); ALBUMIN/GLOBULIN RATIO 1.1 (1.0-1.7); TOTAL BILIRUBIN 0.2 mg/dL (0.2-1.0); TOTAL PROTEIN 7.8 g/dL (6.4-8.2)
[2017-01-02] MEDS ORDERED: DEXAMETHASONE SOD PHOS 20 MG/5 ML VIAL. IV ONE (20:30)
--- NOTE | 2017-01-02 23:00 | RAD ---
INDICATION: Right upper quadrant pain. TECHNIQUE: Ultrasound abdomen complete was performed. No comparison is available. FINDINGS: Pancreas is obscured by bowel gas. Aorta is normal caliber where visualized. IVC is patent. Liver is normal in size and echogenicity. Gallbladder is absent. Common bile duct measures 9 mm, prominent although this can be post reservoir effect in patients with cholecystectomy. Kidneys are without hydronephrosis or mass. Spleen is not well evaluated secondary to bowel gas. IMPRESSION: 1. No acute abdominal findings. 2. Limited evaluation of the pancreas and spleen secondary to bowel gas. 3. Prominent common bile duct. This is nonspecific. It can be a normal finding postcholecystectomy. If it requires further workup, consider MRCP. Electronically signed by: Terry Prather MD (01/02/2017 10:57 PM) [facility]
[2017-01-02] MEDS ORDERED: MAGNESIUM CITRATE 296 ML SOLUTION. PO ONE (23:30)
[2017-01-02] MEDS ORDERED: SIMETHICONE 80 MG TAB.CHEW PO ONE (23:30)
[2017-01-02 23:35] VITALS: BP 132/89
[2017-01-02] MEDS ORDERED: CYCL10TA2 PO (23:35)
[2017-01-02] MEDS ORDERED: HYDR-2762 PO (23:35)
== END 2017-01-02 23:40 | disposition home or self-care (01) ==
LOC: ER 19:21
DX: R10.11 Right upper quadrant pain (principal); R14.1 Gas pain; R50.9 Fever, unspecified; R10.9 Unspecified abdominal pain; R11.0 Nausea; G43.909 Migraine, unspecified, not intractable, without status migrainosus; L93.0 Discoid lupus erythematosus; Z90.49 Acquired absence of other specified parts of digestive tract; Z90.81 Acquired absence of spleen; Z90.721 Acquired absence of ovaries, unilateral; Z87.442 Personal history of urinary calculi; Z88.5 Allergy status to narcotic agent
CPT/HCPCS: 36415; 51701; 76700; 80053; 81001; 81025; 85025; 96374; 96375; 96376; 99285; J1100; J1170; J2405; S0028

== ENCOUNTER 2018-03-01 20:00 | Emergency (ER) | payer OTHER ==
[~2018-03-01] VITALS: Ht 157.5 cm; Wt 63.5 kg
[~2018-03-01 20:00] MED LIST changes: -HYDR-2758 PO; +HYDR-2761 PO; +HYDR-2765 PO; +HYDR-2769 PO; +HYDR-3164 PO; -HYDR-971 PO; +HYDR200T71 PO; +METO10TA81 PO; +METO50TA6 PO; +NAPR-683 PO; -NAPR500T PO; +OMEP40CA5 PO; +ONDA8TAB12 PO; +ZONI100C PO
[2018-03-01 20:48] LABS: BILIRUBIN,URINE SMALL (NEG); CLARITY,URINE CLEAR; COLOR,URINE YELLOW; NITRITE,URINE NEGATIVE (NEG); PROTEIN,URINE 30 mg/dL (NEG-TRACE)
[2018-03-01 20:58] LABS: AMORPHOUS SEDIMENT,UR PRESENT /HPF; HYALINE CASTS, URINE OCCASIONAL /HPF; SQUAMOUS EPITHELIAL CELL,UR MOD /LPF
[2018-03-01 20:59] LABS: BACTERIA,URINE 0 /HPF (0-FEW); RBC,URINE 0 /HPF (0-2)
[2018-03-01] MEDS: ONDANSETRON PF 4 MG/2 ML VIAL. IV ONE (21:38)
[2018-03-01] MEDS: fentaNYL PF VIAL 100 MCG/2 ML VIAL IV ONE ×2 (21:38→22:17)
[2018-03-01] MEDS: IV NORMAL SALINE 1000ML BAG 1,000 ML IV ONE (21:38)
[2018-03-01 21:42] LABS: BASO % 1 % (0-3); EOS % 0 % (0-3); HEMATOCRIT 31.2 % (36.0-47.0); HEMOGLOBIN 9.7 g/dL (12.0-15.5); LYMPH # 4.2 x10^3/uL (1.0-4.8); LYMPH % 70 % (24-48); MEAN CORPUSCULAR HEMOGLOBIN 24 pg (25-35); MEAN CORPUSCULAR HGB CONC 31 g/dL (31-37); MEAN CORPUSCULAR VOLUME 79 fL (79-100); MONO # 0.4 x10^3/uL (0.0-1.1); MONO % 7 % (0-9); NEUT # 1.3 x10^3uL (1.8-7.7); NEUT % 22 % (31-73); PLATELET COUNT 802 x10^3/uL (140-400); RED BLOOD COUNT 3.97 x10^6/uL (3.50-5.40); RED CELL DISTRIBUTION WIDTH 17.5 % (11.5-14.5); WHITE BLOOD COUNT 5.9 x10^3/uL (4.0-11.0)
[2018-03-01 22:10] LABS: % BANDS 1 % (0-9)
[2018-03-01 22:14] LABS: % ATYL 1 % (0-0); % LYMPHS 46 % (24-48); % MONOS 10 % (0-10); % SEGS 42 % (35-66)
[2018-03-01 22:15] LABS: ANISOCYTOSIS SLIGHT; HYPOCHROMIA SLIGHT; PLT ESTIMATE INCREASED (ADEQUATE); POIKILOCYTOSIS SLIGHT; POLYCHROMASIA SLIGHT; SPHEROCYTES FEW; TARGET CELLS FEW
[2018-03-01 22:15] LABS: CALCIUM 8.9 mg/dL (8.5-10.1); CREATININE 0.6 mg/dL (0.6-1.0); GFR 113.8; POTASSIUM 3.1 mmol/L (3.5-5.1)
[2018-03-01 22:16] LABS: ACANTHOCYTES OCC; SCHISTOCYTES OCC
[2018-03-01 22:21] LABS: ALBUMIN 3.6 g/dL (3.4-5.0); ALBUMIN/GLOBULIN RATIO 0.8 (1.0-1.7); TOTAL BILIRUBIN 0.4 mg/dL (0.2-1.0); TOTAL PROTEIN 8.2 g/dL (6.4-8.2)
[2018-03-01] MEDS ORDERED: ONDA4TAB12 PO (22:40)
[2018-03-01] MEDS ORDERED: HYDR-2761 PO (22:40)
[2018-03-01] MEDS ORDERED: CIPR500T PO (22:40)
--- NOTE | 2018-03-01 22:40 | PHYS DOC ---
Past Medical History Past Medical History: Anxiety, Depression, Hypertension, Kidney Stone, Migraines, Seizure, Other Additional Past Medical Histor: CHRONIC KIDNEY INFECTIONS, LUPUS, CHRONIC PYELONEPHRITIS,ICP, INSOMNIA Past Surgical History: Appendectomy, Cholecystectomy, Oophorectomy, Splenectomy , Other Additional Past Surgical Histo: LEFT OVARY Alcohol Use: None Drug Use: None Adult General Chief Complaint Chief Complaint: PAIN ON URINATION HPI HPI Patient is a 37 year old female who presents to the ER wtih complaints of R flank pain for the last week and L flank pain for the last 2 days. She reports low back pain, nausea, fever of 100.4, and yellow colored vaginal discharge today. Pt denies any vaginal itching or concerns of an STI. She reports a hx of kidney stones and frequent urinary tract infections. Currently, her pain is a 10 /10 on the pain scale, nothing makes the pain better, the pain does increase upon urination. Pt denies any abdominal pain. Review of Systems Review of Systems Constitutional: See HPI Eyes: Denies change in visual acuity, redness, or eye pain [] HENT: Denies nasal congestion or sore throat [] Respiratory: Denies cough or shortness of breath [] Cardiovascular: No additional information not addressed in HPI [] GI: Denies abdominal pain, vomiting, or diarrhea; see HPI : see HPI[] Musculoskeletal: Denies joint pain; see HPI Integument: Denies rash or skin lesions [] Neurologic: Denies headache, focal weakness or sensory changes [] Complete systems were reviewed and found to be within normal limits, except as documented in this note. Current Medications Current Medications Current Medications Medications (Trade) Dose Ordered Sig/Rain Start Time Stop Time Status Last Admin Dose Admin Fentanyl Citrate (Fentanyl 2ml Vial) 50 mcg 1X ONCE 03/01/18 22:30 03/01/18 22:31 DC 03/01/18 22:17 50 MCG Ondansetron HCl (Zofran) 4 mg 1X ONCE 03/01/18 21:30 03/01/18 21:31 DC 03/01/18 21:38 4 MG Sodium Chloride 1,000 ml @ 1,000 mls/hr 1X ONCE 03/01/18 21:30 03/01/18 22:29 DC 03/01/18 21:38 1,000 MLS/HR Allergies Allergies Allergies Coded Allergies Type Severity Reaction Last Updated Verified dextromethorphan Allergy Severe SEIZURES 03/01/18 Yes tramadol Allergy Severe seizure 01/18/16 Yes Physical Exam Physical Exam Constitutional: Well developed, well nourished, no acute distress, non-toxic appearance. [] HENT: Normocephalic, atraumatic, bilateral external ears normal, oropharynx moist, no oral exudates, nose normal. [] Eyes: conjunctiva normal, no discharge. [] Neck: Normal range of motion, no tenderness, supple, no stridor. [] Cardiovascular:Heart rate regular rhythm, no murmur [] Lungs & Thorax: Bilateral breath sounds clear to auscultation [] Abdomen: Bowel sounds normal, soft, suprapubic tenderness, no masses, no pulsatile masses. [ : pelvic exam declined by patient Skin: Warm, dry, no erythema, no rash. [] Back: CVA tenderness bilat Extremities: No tenderness, no cyanosis, no clubbing, ROM intact, no edema. [] Neurologic: Alert and oriented X 3, normal motor function, normal sensory function, no focal deficits noted. [] Psychologic: Affect normal, judgement normal, mood normal. [] Current Patient Data Vital Signs Vital Signs Date Time Temp Pulse Resp B/P (MAP) Pulse Ox O2 Delivery O2 Flow Rate FiO2 03/01/18 23:15 88 16 134/84 (101) 100 Room Air 03/01/18 20:05 100.3 100.3 Lab Values Laboratory Tests Test 03/01/18 20:01 03/01/18 20:39 03/01/18 21:30 03/01/18 21:55 Urine Collection Type Unknown Urine Color Yellow Urine Clarity Clear Urine pH 6.0 Urine Specific [place] 1.020 Urine Protein 30 mg/dL (NEG-TRACE) Urine Glucose (UA) Negative mg/dL (NEG) Urine Ketones (Stick) Negative mg/dL (NEG) Urine Blood Negative (NEG) Urine Nitrite Negative (NEG) Urine Bilirubin Small (NEG) Urine Urobilinogen Dipstick 1.0 mg/dL (0.2 mg/dL) Urine Leukocyte Esterase Moderate (NEG) Urine RBC 0 /HPF (0-2) Urine WBC 11-20 /HPF (0-4) Urine Squamous Epithelial Cells Mod /LPF Urine Amorphous Sediment Present /HPF Urine Bacteria 0 /HPF (0-FEW) Urine Hyaline Casts Occasional /HPF Urine Mucus Marked /LPF POC Urine HCG, Qualitative Hcg negative (Negative) White Blood Count 5.9 x10^3/uL (4.0-11.0) Red Blood Count 3.97 x10^6/uL (3.50-5.40) Hemoglobin 9.7 g/dL (12.0-15.5) L Hematocrit 31.2 % (36.0-47.0) L Mean Corpuscular Volume 79 fL (79-100) Mean Corpuscular Hemoglobin 24 pg (25-35) L Mean Corpuscular Hemoglobin Concent 31 g/dL (31-37) Red Cell Distribution Width 17.5 % (11.5-14.5) H Platelet Count 802 x10^3/uL (140-400) H Neutrophils (%) (Auto) 22 % (31-73) L Lymphocytes (%) (Auto) 70 % (24-48) H Monocytes (%) (Auto) 7 % (0-9) Eosinophils (%) (Auto) 0 % (0-3) Basophils (%) (Auto) 1 % (0-3) Neutrophils # (Auto) 1.3 x10^3uL (1.8-7.7) L Lymphocytes # (Auto) 4.2 x10^3/uL (1.0-4.8) Monocytes # (Auto) 0.4 x10^3/uL (0.0-1.1) Eosinophils # (Auto) 0.0 x10^3/uL (0.0-0.7) Basophils # (Auto) 0.0 x10^3/uL (0.0-0.2) Segmented Neutrophils % 42 % (35-66) Band Neutrophils % 1 % (0-9) Lymphocytes % 46 % (24-48) Atypical Lymphocytes % (Manual) 1 % (0-0) H Monocytes % 10 % (0-10) Platelet Estimate Increased (ADEQUATE) Polychromasia Slight Hypochromasia Slight Poikilocytosis Slight Anisocytosis Slight Spherocytes Few Target Cells Few Acanthocytes (Spur Cells) Occ Schistocytes Occ Sodium Level 140 mmol/L (136-145) Potassium Level 3.1 mmol/L (3.5-5.1) L Chloride Level 107 mmol/L (98-107) Carbon Dioxide Level 22 mmol/L (21-32) Anion Gap 11 (6-14) Blood Urea Nitrogen 7 mg/dL (7-20) Creatinine 0.6 mg/dL (0.6-1.0) Estimated GFR (Cockcroft-Gault) 113.8 BUN/Creatinine Ratio 12 (6-20) Glucose Level 99 mg/dL (70-99) Lactic Acid Level 1.1 mmol/L (0.4-2.0) Calcium Level 8.9 mg/dL (8.5-10.1) Total Bilirubin 0.4 mg/dL (0.2-1.0) Aspartate Amino Transferase (AST) 18 U/L (15-37) Alanine Aminotransferase (ALT) 22 U/L (14-59) Alkaline Phosphatase 113 U/L (46-116) Total Protein 8.2 g/dL (6.4-8.2) Albumin 3.6 g/dL (3.4-5.0) Albumin/Globulin Ratio 0.8 (1.0-1.7) L Laboratory Tests 03/01/18 21:30 Laboratory Tests 03/01/18 21:55 Microbiology 03/01/18 Urine Culture - Final, Complete 03/01/18 Urine Culture Result 1 (KIM) - Final, Complete 03/01/18 Antimicrobic Susceptibility - Final, Complete EKG EKG [] Radiology/Procedures Radiology/Procedures [] Course & Med Decision Making Course & Med Decision Making Pertinent Labs and Imaging studies reviewed. (See chart for details) Dx: acute pyelonephritis Prescriptions written for ciprofloxacin, hydrocodone, and zofran Increase clear fluids. Follow up with your primary care doctor in 1-2 days. Return to the ER if symptoms worsen. Patient verbalized an understanding of home care, medications, follow-up, and return to ED instructions and was in agreement with the plan of care. [] Dragon Disclaimer Dragon Disclaimer This electronic medical record was generated, in whole or in part, using a voice recognition dictation system. Departure Departure Impression: Primary Impression: Acute pyelonephritis Disposition: 01 HOME, SELF-CARE Condition: STABLE Referrals: UNKNOWN PCP NAME (PCP) Patient Instructions: Pyelonephritis, Adult, [id number] Additional Instructions: Fill the prescriptions and use as directed. Increase clear fluids. Follow up with your primary care doctor in 1-2 days. Return to the ER if symptoms worsen. Scripts Ondansetron (ONDANSETRON ODT) 4 Mg Tab.rapdis 1 TAB PO PRN Q6-8HRS, #16 TAB 0 Refills Prov: KARYNA LAU [employer] 03/01/18 Hydrocodone Bit/Acetaminophen (HYDROCODONE-APAP 5-325 ) 1 Tab Tablet 1 TAB PO PRN Q6HRS PRN for PAIN for 3 Days, #12 TAB 0 Refills Prov: KARYNA LAU [employer] 03/01/18 Ciprofloxacin Hcl (CIPROFLOXACIN HCL) 500 Mg Tablet 1 TAB PO BID, #14 TAB 0 Refills Prov: KARYNA [employer]U [employer] 03/01/18 KARYNA [employer]U [employer] Mar 01, 2018 22:40
[2018-03-01 23:15] VITALS: BP 134/84
[2018-03-04] MEDS ORDERED: OXYC-325 PO (00:24)
== END 2018-03-01 23:27 | disposition home or self-care (01) ==
LOC: ER 20:00
DX: N10 Acute pyelonephritis (principal); I10 Essential (primary) hypertension; G43.909 Migraine, unspecified, not intractable, without status migrainosus; Z87.442 Personal history of urinary calculi; Z87.440 Personal history of urinary (tract) infections; Z90.89 Acquired absence of other organs; Z90.49 Acquired absence of other specified parts of digestive tract; Z90.721 Acquired absence of ovaries, unilateral; Z90.81 Acquired absence of spleen; Z88.6 Allergy status to analgesic agent; Z88.8 Allergy status to other drugs, medicaments and biological substances
CPT/HCPCS: 36415; 80053; 81001; 81025; 83605; 85007; 85025; 87086; 96374; 96375; 96376; 99283; J2405; J3010; J7030

== ENCOUNTER 2018-05-04 20:39 | Emergency (ER) | payer OTHER ==
[~2018-05-04] VITALS: Ht 157.5 cm; Wt 63.5 kg
[~2018-05-04 20:39] MED LIST changes: +CIPR500T PO; +ONDA4TAB12 PO; +OXYC-325 PO
[2018-05-04] MEDS ORDERED: IV NORMAL SALINE 1000ML BAG 1,000 ML IV SCH (22:00)
[2018-05-04 23:52] LABS: BILIRUBIN,URINE NEGATIVE (NEG); CLARITY,URINE CLEAR; COLOR,URINE YELLOW; NITRITE,URINE NEGATIVE (NEG); PH,URINE 6.5; PROTEIN,URINE NEGATIVE (NEG-TRACE); UROBILINOGEN,URINE 0.2 mg/dL (0.2 mg/dL)
[2018-05-04 23:57] LABS: BACTERIA,URINE 0 /HPF (0-FEW); RBC,URINE 0 /HPF (0-2); SQUAMOUS EPITHELIAL CELL,UR OCC /LPF; WBC,URINE 0 /HPF (0-4)
[2018-05-04 23:59] LABS: BARBITURATES NEG (NEG); BENZODIAZEPINES POS (NEG); CANNABINOIDS NEG (NEG); COCAINE NEG (NEG); METHADONE NEG (NEG); OPIATES POS (NEG); PHENCYCLIDINE NEG (NEG)
[2018-05-05] LABS: AMPHETAMINE/METHAMPHETAMINE NEG (NEG)
[2018-05-05 00:27] LABS: HEMATOCRIT 31.2 % (36.0-47.0); HEMOGLOBIN 9.8 g/dL (12.0-15.5); MEAN CORPUSCULAR HEMOGLOBIN 25 pg (25-35); MEAN CORPUSCULAR HGB CONC 31 g/dL (31-37); MEAN CORPUSCULAR VOLUME 81 fL (79-100); PLATELET COUNT 302 x10^3/uL (140-400); RED BLOOD COUNT 3.88 x10^6/uL (3.50-5.40); RED CELL DISTRIBUTION WIDTH 22.6 % (11.5-14.5); WHITE BLOOD COUNT 6.8 x10^3/uL (4.0-11.0)
[2018-05-05 00:31] LABS: CALCIUM 8.3 mg/dL (8.5-10.1); CREATININE 0.6 mg/dL (0.6-1.0); GFR 113.8; POTASSIUM 3.6 mmol/L (3.5-5.1)
[2018-05-05 00:35] LABS: ALBUMIN 2.8 g/dL (3.4-5.0); ALBUMIN/GLOBULIN RATIO 0.7 (1.0-1.7); MAGNESIUM 1.7 mg/dL (1.8-2.4); TOTAL BILIRUBIN 0.1 mg/dL (0.2-1.0); TOTAL PROTEIN 6.6 g/dL (6.4-8.2)
[2018-05-05 00:39] LABS: ACETAMIN 2.3 mcg/ml (10-30); ETHANOL < 10 mg/dL (0-10); SALIC < 2.8 mg/dL (2.8-20.0)
[2018-05-05 00:56] LABS: % EOS 3 % (0-5); % LYMPHS 44 % (24-48); % MONOS 22 % (0-10); % SEGS 31 % (35-66); ANISOCYTOSIS MOD; HYPOCHROMIA SLIGHT; PLT ESTIMATE ADEQUATE (ADEQUATE); POIKILOCYTOSIS SLIGHT; POLYCHROMASIA SLIGHT; TARGET CELLS FEW
[2018-05-05 00:57] LABS: ACANTHOCYTES FEW
--- NOTE | 2018-05-05 01:08 | PHYS DOC ---
Past Medical History Past Medical History: Anxiety, Depression, Hypertension, Kidney Stone, Migraines, Seizure, Other Additional Past Medical Histor: CHRONIC KIDNEY INFECTIONS, LUPUS, CHRONIC PYELONEPHRITIS,ICP, INSOMNIA Past Surgical History: Appendectomy, Cholecystectomy, Oophorectomy, Splenectomy , Other Additional Past Surgical Histo: LEFT OVARY Alcohol Use: None Drug Use: None Adult General Chief Complaint Chief Complaint: chronic pain HPI HPI Patient is a 37-year-old female who presents at request of family. Patient states that her aunt had found some pain pills that she had gotten from a friend in her purse and reportedly was concerned because these were not prescribed to her. Patient admits to having chronic pain but states that she is not addicted to pain medications. She admits to having some mild depression but denies any thoughts of suicidal homicidal ideations. Review of Systems Review of Systems Constitutional: Denies fever or chills [] Respiratory: Denies cough or shortness of breath [] Cardiovascular: No additional information not addressed in HPI [] GI: Denies abdominal pain, nausea, vomiting [] Musculoskeletal: Positive chronic back pain [] Neurologic: Positive headache without focal weakness or sensory changes [] All other systems were reviewed and found to be within normal limits, except as documented in this note. Current Medications Current Medications Current Medications Medications (Trade) Dose Ordered Sig/Rain Start Time Stop Time Status Last Admin Dose Admin Sodium Chloride 1,000 ml @ 1,000 mls/hr Q1H 05/04/18 22:00 05/04/18 22:59 DC 05/05/18 00:00 1,000 MLS/HR Allergies Allergies Allergies Coded Allergies Type Severity Reaction Last Updated Verified dextromethorphan Allergy Severe SEIZURES 03/01/18 Yes tramadol Allergy Severe seizure 01/18/16 Yes Physical Exam Physical Exam Constitutional: Well developed, well nourished, no acute distress, non-toxic appearance. [] HENT: Normocephalic, atraumatic, bilateral external ears normal, oropharynx moist, no oral exudates, nose normal. [] Eyes: PERRLA, EOMI, conjunctiva normal, no discharge. [] Neck: Normal range of motion, no tenderness, supple, no stridor. [] Cardiovascular: Regular rate and rhythm[] Lungs & Thorax: Bilateral breath sounds clear to auscultation [] Abdomen: Bowel sounds normal, soft, no tenderness. [] Skin: Warm, dry, no erythema, no rash. [] Extremities: No tenderness, no cyanosis, no clubbing, ROM intact, no edema. [] Neurologic: Alert and oriented X 3, no focal deficits noted. [] Psychologic: Flattened affect with depressed mood. [] Current Patient Data Vital Signs Vital Signs Date Time Temp Pulse Resp B/P (MAP) Pulse Ox O2 Delivery O2 Flow Rate FiO2 05/05/18 01:19 96 20 98 05/04/18 21:04 98.9 178/86 (116) Room Air 98.9 Lab Values Laboratory Tests Test 05/04/18 23:45 05/05/18 00:05 Urine Collection Type Unknown Urine Color Yellow Urine Clarity Clear Urine pH 6.5 Urine Specific [place] 1.010 Urine Protein Negative mg/dL (NEG-TRACE) Urine Glucose (UA) Negative mg/dL (NEG) Urine Ketones (Stick) Negative mg/dL (NEG) Urine Blood Negative (NEG) Urine Nitrite Negative (NEG) Urine Bilirubin Negative (NEG) Urine Urobilinogen Dipstick 0.2 mg/dL (0.2 mg/dL) Urine Leukocyte Esterase Negative (NEG) Urine RBC 0 /HPF (0-2) Urine WBC 0 /HPF (0-4) Urine Squamous Epithelial Cells Occ /LPF Urine Bacteria 0 /HPF (0-FEW) POC Urine HCG, Qualitative Hcg negative (Negative) Urine Opiates Screen Pos (NEG) Urine Methadone Screen Neg (NEG) Urine Barbiturates Neg (NEG) Urine Phencyclidine Screen Neg (NEG) Urine Amphetamine/Methamphetamine Neg (NEG) Urine Benzodiazepines Screen Pos (NEG) Urine Cocaine Screen Neg (NEG) Urine Cannabinoids Screen Neg (NEG) Urine Ethyl Alcohol Neg (NEG) White Blood Count 6.8 x10^3/uL (4.0-11.0) Red Blood Count 3.88 x10^6/uL (3.50-5.40) Hemoglobin 9.8 g/dL (12.0-15.5) L Hematocrit 31.2 % (36.0-47.0) L Mean Corpuscular Volume 81 fL (79-100) Mean Corpuscular Hemoglobin 25 pg (25-35) Mean Corpuscular Hemoglobin Concent 31 g/dL (31-37) Red Cell Distribution Width 22.6 % (11.5-14.5) H Platelet Count 302 x10^3/uL (140-400) Neutrophils (%) (Auto) % (31-73) Lymphocytes (%) (Auto) % (24-48) Monocytes (%) (Auto) % (0-9) Eosinophils (%) (Auto) % (0-3) Basophils (%) (Auto) % (0-3) Neutrophils # (Auto) x10^3uL (1.8-7.7) Lymphocytes # (Auto) x10^3/uL (1.0-4.8) Monocytes # (Auto) x10^3/uL (0.0-1.1) Eosinophils # (Auto) x10^3/uL (0.0-0.7) Basophils # (Auto) x10^3/uL (0.0-0.2) Segmented Neutrophils % 31 % (35-66) L Lymphocytes % 44 % (24-48) Monocytes % 22 % (0-10) H Eosinophils % 3 % (0-5) Platelet Estimate Adequate (ADEQUATE) Polychromasia Slight Hypochromasia Slight Poikilocytosis Slight Basophilic Stippling Present Anisocytosis Mod Target Cells Few Acanthocytes (Spur Cells) Few Sodium Level 141 mmol/L (136-145) Potassium Level 3.6 mmol/L (3.5-5.1) Chloride Level 105 mmol/L (98-107) Carbon Dioxide Level 25 mmol/L (21-32) Anion Gap 11 (6-14) Blood Urea Nitrogen 8 mg/dL (7-20) Creatinine 0.6 mg/dL (0.6-1.0) Estimated GFR (Cockcroft-Gault) 113.8 BUN/Creatinine Ratio 13 (6-20) Glucose Level 93 mg/dL (70-99) Lactic Acid Level 1.3 mmol/L (0.4-2.0) Calcium Level 8.3 mg/dL (8.5-10.1) L Magnesium Level 1.7 mg/dL (1.8-2.4) L Total Bilirubin 0.1 mg/dL (0.2-1.0) L Aspartate Amino Transferase (AST) 29 U/L (15-37) Alanine Aminotransferase (ALT) 17 U/L (14-59) Alkaline Phosphatase 79 U/L (46-116) Total Protein 6.6 g/dL (6.4-8.2) Albumin 2.8 g/dL (3.4-5.0) L Albumin/Globulin Ratio 0.7 (1.0-1.7) L Salicylates Level < 2.8 mg/dL (2.8-20.0) L Salicylate Last Dose Date Unk Salicylate Last Dose Time Unk Acetaminophen Level 2.3 mcg/ml (10-30) L Acetaminophen Last Dose Date Unk Acetaminophen Last Dose Time Unk Ethyl Alcohol Level < 10 mg/dL (0-10) Laboratory Tests 05/05/18 00:05 Laboratory Tests 05/05/18 00:05 EKG EKG [] Radiology/Procedures Radiology/Procedures [] Course & Med Decision Making Course & Med Decision Making Pertinent Labs and Imaging studies reviewed. (See chart for details) A mental health workup was initiated on this patient and patient seen by PAT team. Patient has been cleared by PAT team as she is not a danger to herself. Dragon Disclaimer Dragon Disclaimer This electronic medical record was generated, in whole or in part, using a voice recognition dictation system. Departure Departure Impression: Primary Impression: Opiate abuse, continuous Disposition: 01 HOME, SELF-CARE Condition: STABLE Referrals: UNKNOWN PCP NAME (PCP) Patient Instructions: Opiate Dependence MEHDI SALAZAR Jr. DO May 05, 2018 01:08
[2018-05-05 01:19] VITALS: BP 134/82
--- NOTE | 2018-05-05 08:45 | EKG ---
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
== END 2018-05-05 01:31 | disposition home or self-care (01) ==
LOC: ER 20:39
DX: F11.10 Opioid abuse, uncomplicated (principal); F32.9 Major depressive disorder, single episode, unspecified; G89.29 Other chronic pain; M54.9 Dorsalgia, unspecified; G43.909 Migraine, unspecified, not intractable, without status migrainosus; F41.9 Anxiety disorder, unspecified; I12.9 Hypertensive chronic kidney disease with stage 1 through stage 4 chronic kidney disease, or unspecified chronic kidney disease; N18.9 Chronic kidney disease, unspecified; Z88.6 Allergy status to analgesic agent; Z88.8 Allergy status to other drugs, medicaments and biological substances
CPT/HCPCS: 36415; 80053; 80307; 80329; 81001; 81025; 83605; 83735; 85007; 85025; 93005; 99284; G0480; G6039; J7030